=== PATIENT | female | born 1940 | race Caucasian/White ===

== ENCOUNTER 2016-12-23 12:11 | Day surgery (SDC) | payer MEDICARE, OTHER ==
[2016-12-23 12:37] VITALS: BP 179/86; PULSE 85; RESP 16; TEMP 97.9
--- NOTE | 2016-12-23 13:25 | US ---
Therapeutic paracentesis. CLINICAL HISTORY: Ascites Preliminary scanning demonstrated only small amount of ascites. No significant collection within the left abdomen. The patient deferred the procedure. IMPRESSION: Deferred ultrasound paracentesis
== END 2016-12-23 13:13 | disposition home or self-care (01) ==
LOC: RADPROMAIN 12:11
PROVIDERS: ATTEND Internal Medicine Hematology & Oncology
DX: R18.8 Other ascites (principal); Z53.29 Procedure and treatment not carried out because of patient's decision for other reasons; C56.9 Malignant neoplasm of unspecified ovary
CPT/HCPCS: 76705

== ENCOUNTER → 2017-08-10 | Outpatient (CLI) | payer MEDICARE, OTHER ==
[2017-08-10 15:04] LABS: Blood Urea Nitrogen 24 mg/dL (7-17); Non-African American GFR(MDRD) >60 (>60 ml/min/1.73 sqM)
--- NOTE | 2017-08-10 16:35 | CT ---
EXAMINATION TYPE: CT ChestAbdPelvis w con DATE OF EXAM: 08/10/2017 COMPARISON: NONE HISTORY: Follow-up ovarian cancer. Surgical history includes cholecystectomy, hysterectomy, splenecto my, and appendectomy. CT DLP: 587.10 mGycm. Automated Exposure Control for Dose Reduction was Utilized. CONTRAST: CT scan of the thorax, abdomen and pelvis is performed with IV Contrast, patient injected with 100 mL of Omnipaque 300. FINDINGS: LUNGS: Subpleural 2 to 3 mm pulmonary nodules are seen on the right and image 4 series 24 adjacent to an area of scarring or chronic atelectasis and on series 4 image 31 within the inferior right upper lobe. Probable intrafissural lymph node is also seen measuring 3 mm on series 4 image 32. No pulmonar y mass is identified. No left-sided pulmonary nodule seen. Linear left basilar pleural parenchymal sc arring is noted. The lungs are grossly clear, there is no concerning parenchymal mass or nodule ident ified. There is no pleural effusion or pneumothorax seen. The tracheobronchial tree is patent. MEDIASTINUM: There are no greater than 1 cm hilar or mediastinal lymph nodes. Prominent but nonenlarg ed prevascular 8mm lymph node is present. No pericardial effusion is seen. LIVER/GB: No hepatic masses are appreciated. No subserosal implants are seen or liver parenchymal inv asion in this patient with a history of ovarian cancer. Gallbladder surgically absent. Postsurgical p rominence of the extrahepatic biliary system is seen. No intrahepatic biliary ductal dilatation. PANCREAS: Diffuse pancreatic atrophy is seen without ductal dilatation. SPLEEN: The spleen is surgically absent. ADRENALS: No significant abnormality is seen. KIDNEYS: 6 mm right anterior cortical midpole renal lesion is too small to accurately characterize. B ilateral pelvocaliectasis is seen without matt evidence of hydronephrosis or hydroureter.. BOWEL: No significant abnormality is seen. No evidence of bowel dilation. The appendix is surgically absent. GENITAL ORGANS: Uterus is surgically absent. Ovaries are both thought to be surgically absent with no residual ovarian tissue visualized on CT. LYMPH NODES: No greater than 1cm abdominal or pelvic lymph nodes are appreciated. OSSEOUS STRUCTURES: Multilevel degenerative disc disease is seen of the thoracolumbar and lumbosacral spine, mild to moderate in degree. OTHER: Nonspecific presacral edema is seen measuring 1.4 cm in thickness on series 3 image 104. This could relate to prior therapy if radiation was utilized or edema. IMPRESSION: 1. No evidence of local pelvic adenopathy or adenopathy within the chest, abdomen or pelvis. 2. No evidence of visceral metastasis within the abdomen or pelvis. Few subcentimeter (2 to 3 mm) rig ht-sided pulmonary nodules. Although these are unlikely to relate to metastasis surveillance is recom mended with follow-up CT thorax in 3-6 months. 3. Nonspecific presacral edema that could relate to posttreatment change if radiation was utilized or could be postsurgical in nature.
== END ==
LOC: RADPROMAIN 13:46
PROVIDERS: ATTEND Internal Medicine Hematology & Oncology
DX: C56.2 Malignant neoplasm of left ovary (principal)
CPT/HCPCS: 82565; 84520; 71260; 74177; 36415; Q9967

== ENCOUNTER → 2017-12-29 | Outpatient (CLI) | payer MEDICARE, OTHER ==
[2017-12-29 13:28] LABS: Anion Gap 9 mmol/L; Blood Urea Nitrogen 23 mg/dL (7-17); Calcium 9.6 mg/dL (8.4-10.2); Carbon Dioxide 30 mmol/L (22-30); Chloride 104 mmol/L (98-107); Glucose 97 mg/dL (74-99); Potassium 4.6 mmol/L (3.5-5.1); Sodium 143 mmol/L (137-145)
== END | disposition home or self-care (01) ==
LOC: LABWHC1 12:15
PROVIDERS: ATTEND Family Medicine
DX: I10 Essential (primary) hypertension (principal)
CPT/HCPCS: 36415; 80048; 85610

== ENCOUNTER → 2018-02-14 | Outpatient (CLI) | payer MEDICARE, OTHER ==
[2018-02-14 14:00] LABS: Blood Urea Nitrogen 27 mg/dL (7-17)
--- NOTE | 2018-02-15 07:30 | CT ---
EXAMINATION TYPE: CT ChestAbdPelvis w con DATE OF EXAM: 02/14/2018 COMPARISON: CT Chest Abdomen Pelvis With August 10, 2017. HISTORY: Follow up ovarian cancer CT DLP: 893.7 mGycm. Automated Exposure Control for Dose Reduction was Utilized. CONTRAST: CT scan of the thorax, abdomen and pelvis is performed with oral and with IV Contrast, patient inject ed with 100 mL of Isovue 300. FINDINGS: LUNGS: Dependent atelectasis in both bases is present. There is no suspicious new greater than 5 mm p arenchymal nodule or mass bilaterally. Tiny linear and nodular scarring anteromedially right midlung is unchanged near axial image 24. Inferior and lateral to this there is stable 3 mm nodule axial imag e 31. There is no pleural effusion or pneumothorax seen bilaterally. MEDIASTINUM: There is stable 9 x 8 mm lymph node anterior to ascending aorta axial image 22. There is stable prominent but subcentimeter 1.8 x 0.8 cm pericarinal lymph node axial image 23. No new susp icious greater than 1 cm adenopathy identified. No cardiomegaly or pericardial effusion is seen. Cor onary artery calcification is redemonstrated which is noted marker for coronary artery disease. OTHER: There is persistent right internal jugular Mediport catheter terminating in SVC. LIVER/GB: Cholecystectomy clips are redemonstrated. PANCREAS: Fairly moderate fat replaced atrophy of pancreas particularly body is redemonstrated. SPLEEN: Spleen is surgically absent. ADRENALS: No significant abnormality is seen. KIDNEYS: There are simple central parapelvic cysts in the left kidney redemonstrated. There is persis tent subcentimeter low dense lesion anteriorly upper to mid pole level right kidney axial image 36 se piedad 5 to small to further characterize per presumed benign. BOWEL: The oral contrast reaches level of mid transverse colon. There is no suspicious small or large bowel dilatation. There are surgical sutures near sigmoid rectal junction on axial image 101 redemon strated. Amount of colonic fecal material is slightly more prominent versus prior study. GENITAL ORGANS: Uterus is surgically absent. Scattered pelvic phleboliths are seen. LYMPH NODES: No greater than 1cm abdominal or pelvic lymph nodes are appreciated. OSSEOUS STRUCTURES: Mild to moderate joint space loss in both hips remains present. There is multilev el facet arthropathy mid to lower lumbar levels. OTHER: No significant additional abnormality is seen. IMPRESSION: No obvious new mass or adenopathy is seen to suggest neoplastic recurrence or metastatic malignancy.
== END | disposition home or self-care (01) ==
LOC: RADPROMAIN 13:14
PROVIDERS: ATTEND Internal Medicine Hematology & Oncology
DX: C56.2 Malignant neoplasm of left ovary (principal); Z88.0 Allergy status to penicillin; Z88.2 Allergy status to sulfonamides
CPT/HCPCS: 82565; 84520; 71260; 74177; J1642; Q9967

== ENCOUNTER → 2018-04-23 | Outpatient (CLI) | payer MEDICARE, OTHER ==
--- NOTE | 2018-04-23 14:54 | MM ---
Reason for exam: screening (asymptomatic). Last mammogram was performed 1 year and 7 months ago. History: Patient is postmenopausal, has history of ovarian cancer at age 76, and has history of other cancer at age 70. Took estrogen for 7 years beginning at age 52. Took progesterone for 7 years beginning at age 52. Physical Findings: A clinical breast exam by your physician is recommended on an annual basis and results should be correlated with mammographic findings. MG 3D Screening Mammo W/Cad Bilateral CC and MLO view(s) were taken. Prior study comparison: September 19, 2016, bilateral MG 3d screening mammo w/cad. September 18, 2015, bilateral MG screening mammo w CAD. The breast tissue is heterogeneously dense. This may lower the sensitivity of mammography. There is chronic nodularity in the left subareolar breast. There is no dominant lesion. ASSESSMENT: Benign, BI-RAD 2 RECOMMENDATION: Routine screening mammogram of both breasts in 1 year.
== END | disposition home or self-care (01) ==
LOC: RADMAMWWP 11:26
PROVIDERS: ATTEND Family Medicine
DX: Z12.31 Encounter for screening mammogram for malignant neoplasm of breast (principal)
CPT/HCPCS: 77063; 77067

== ENCOUNTER → 2018-08-17 | Outpatient (CLI) | payer MEDICARE, OTHER ==
[2018-08-17 13:59] LABS: Blood Urea Nitrogen 24 mg/dL (7-17)
--- NOTE | 2018-08-17 16:08 | CT ---
EXAMINATION TYPE: CT ChestAbdPelvis w con DATE OF EXAM: 08/17/2018 COMPARISON: CT chest abdomen pelvis February 14, 2018 HISTORY: Ovarian cancer, suspect mets. CT DLP: 1619 mGycm. Automated Exposure Control for Dose Reduction was Utilized. CONTRAST: CT scan of the thorax, abdomen and pelvis is performed with oral and with IV Contrast, patient inject ed with 100 mL of Isovue M300. FINDINGS: LUNGS: There are some patchy bibasilar linear scarring and/or atelectasis redemonstrated. Tiny 2 mm n odule anterior right mid to lower lung axial image 32 is stable from 2017 CT. No new suspicious nodul es or masses are identified bilaterally. No pleural effusion or pneumothorax is seen. MEDIASTINUM: There are no new greater than 1 cm hilar or mediastinal lymph nodes. There is stable o r slightly less prominent 8 mm lymph node anterior to the ascending aorta axial image 23 redemonstrat ed. There is stable borderline enlarged pericarinal lymph node measuring 2.0 x 1.0 cm axial image 25. No cardiomegaly or pericardial effusion is seen. Coronary artery calcification is redemonstrated wh ich is noted marker for coronary artery disease. There is 4 vessel origin from aortic arch which is n ormal variant. OTHER: There is stable right internal jugular Mediport catheter terminating in SVC. LIVER/GB: Cholecystectomy clips are redemonstrated. PANCREAS: Mild diffuse fat replaced atrophy of pancreas is again seen. SPLEEN: Spleen is not visualized and presumed surgically absent. ADRENALS: No significant abnormality is seen. KIDNEYS: Subcentimeter low dense lesion right kidney axial image 33 series 7 is too small to further characterize but presumed benign and stable. BOWEL: Oral contrast reaches level proximal transverse colon. There is no suspicious small or large b owel dilatation. GENITAL ORGANS: Uterus is surgically absent. LYMPH NODES: No greater than 1cm abdominal or pelvic lymph nodes are appreciated. OSSEOUS STRUCTURES: Some multilevel spurring in the thoracolumbar spine is seen. Facet arthropathy lo wer lumbar levels is redemonstrated. Mild axial joint space loss in both hips is redemonstrated. OTHER: There is mild to moderate calcified plaque in the abdominal aorta extending into branch vessel s. There is periumbilical hernia containing fat and tiny mesenteric vessels near axial image 81 redem onstrated felt stable. IMPRESSION: Overall stable findings, no new mass or adenopathy identified to suggest metastatic malig megan or neoplastic recurrence.
== END | disposition home or self-care (01) ==
LOC: RADPROMAIN 13:20
PROVIDERS: ATTEND Internal Medicine Hematology & Oncology
DX: C56.2 Malignant neoplasm of left ovary (principal); Z88.0 Allergy status to penicillin; Z88.2 Allergy status to sulfonamides; Z95.828 Presence of other vascular implants and grafts
CPT/HCPCS: 82565; 84520; 71260; 74177; J1642; Q9967

== ENCOUNTER → 2019-04-24 | Outpatient (CLI) | payer MEDICARE, OTHER ==
--- NOTE | 2019-04-24 17:18 | CT ---
EXAMINATION TYPE: CT ChestAbdPelvis w con DATE OF EXAM: 04/24/2019 COMPARISON: 12/19/2018 and 08/17/2018 HISTORY: 78-year-old female f/u ovarian ca TECHNIQUE: Contiguous axial scanning of the test, abdomen, and pelvis performed with IV Contrast, pat ient injected with 100 mL of Isovue 300. Delayed images through the kidneys were obtained. Coronal/sa gittal reconstructions performed. CT DLP: 1827 mGycm Automated exposure control for dose reduction was used. FINDINGS: CHEST: Are normal size without pericardial effusion. Coronary vessel calcifications are present. Minimal aor tic valvular calcifications. There are normal caliber with very direct takeoff of the left vertebral artery from the aortic arch. Right anterior chest wall injection port with catheter tip at the cavoatrial junction. Anterior mediastinal lymph node measures 8 mm versus 9 mm, previously. Precarinal lymph node measures 1.1 cm versus 1.3 cm, previously. Additional pretracheal lymph nodes which were not enlarged previou sly also seem to have decreased in size now. 8mm subareolar nodule left breast was present back to at least 08/10/2017. Stable trace left pleural effusion. Trace right effusion has resolved. No new pulmonary nodules. No c onsolidation. ABDOMEN: No focal liver lesion. Stable mild prominence of bile duct status post cholecystectomy. Portal venous system is patent. Stable trace soft tissue thickening along the anterior aspect of the gallbladder fossa. A elizabeth hepat ic lymph node, axial image 58 measures 7 mm versus 9 mm, previously. Adrenal glands, left kidney, atrophic pancreas show no gross anomaly. Minimal stranding and nodularity is present in the splenectomy bed, unchanged from 08/17/2018.. Some focal peritoneal thickening right mid abdomen, axial image 76 measuring 1.2 cm and also anterior right paramedian mid abdomen measuring 2.1 x 0.7 cm, axial image 75, are both unchanged. There is new distortion of the mid transverse colon with questionable soft tissue thickening along th e inferior wall, refer to axial image 85 and coronal image 13. Attention on follow-up. No dilated small bowel or free air. Stable prominence to the right gonadal vein. Pelvis: Prior resection and re-anastomosis at the rectosigmoid junction. Mild diverticular change at the dist al sigmoid. Bladder partially distended. Uterus surgically absent. No abnormal fluid collection in th e pelvis. Bones: Degenerative changes at the hips. Degenerative changes mid to lower lumbar spine and endplate spondyl osis lower thoracic spine. No osseous disc process. IMPRESSION: 1. IN THE CHEST, A FEW MEDIASTINAL LYMPH NODES SHOW INTERVAL DECREASE IN SIZE BY A FEW MILLIMETERS, N OW MEASURING UP TO 1.1 CM VERSUS 1.3 CM, PREVIOUSLY. STABLE TRACE LEFT PLEURAL EFFUSION. 2. STABLE SOFT TISSUE THICKENING ALONG THE ANTERIOR ASPECT OF THE GALLBLADDER FOSSA AND SOME FOCAL. THICKENING AT A COUPLE PLACES WITHIN THE RIGHT SIDE OF THE ABDOMEN. LIKELY CORRESPONDING TO STABLE OR TREATED DISEASE. 3. A ELIZABETH HEPATIC LYMPH NODE IS SMALLER AT 7 MM VERSUS 9 MM, PREVIOUSLY. 4. HOWEVER, THERE IS NEW DISTORTION OF THE MID TRANSVERSE COLON WITH QUESTIONABLE SOFT TISSUE THICKEN ING ALONG THE INFERIOR WALL. CLOSE SURVEILLANCE IS RECOMMENDED TO EXCLUDE EARLY SEROSAL DISEASE HERE.
== END | disposition home or self-care (01) ==
LOC: RADCTMAIN 13:33
PROVIDERS: ATTEND Internal Medicine Hematology & Oncology
DX: Q43.8 Other specified congenital malformations of intestine (principal); C56.2 Malignant neoplasm of left ovary; Z03.89 Encounter for observation for other suspected diseases and conditions ruled out; Z88.2 Allergy status to sulfonamides; Z88.0 Allergy status to penicillin
CPT/HCPCS: 82565; 84520; 71260; 74177; 36415; J1642; Q9967

== ENCOUNTER → 2019-06-27 | Outpatient (CLI) | payer MEDICARE, OTHER | END | disposition home or self-care (01) | LOC: LABWHC1 13:48 | PROVIDERS: ATTEND Physical Medicine & Rehabilitation | DX: Z53.9 Procedure and treatment not carried out, unspecified reason (principal) ==

== ENCOUNTER → 2019-09-30 | Outpatient (CLI) | payer MEDICARE, OTHER ==
--- NOTE | 2019-09-30 16:00 | CT ---
EXAMINATION TYPE: CT abdomen pelvis w con DATE OF EXAM: 09/30/2019 COMPARISON: 04/24/2019 HISTORY: ovarian ca 6mo followup CT DLP: 1063 mGycm CONTRAST: CT scan of the abdomen and pelvis is performed with Oral Contrast and with IV Contrast, patient injec mer with 80 mL of [address] of the chest was included on this study. FINDINGS: CT chest: Left-sided pleural effusion measuring 2.9 cm AP dimension with associated compressive atelectasis. Sm all right-sided pleural effusion noted. No distinct ulnar nodule. Anterior mediastinal nodule is unch anged at 8 mm versus 8 mm previously. Heart and thoracic aorta are normal caliber. LIVER/GB: Cholecystectomy clips are in place. No space occupying hepatic lesion. Biliary tree is o f normal caliber. PANCREAS: No inflammation. No distinct mass. SPLEEN: No splenic enlargement. No lesion seen. ADRENALS: No nodule. No thickening. KIDNEYS/BLADDER: No hydronephrosis. No nephrolithiasis. No distinct renal mass. Urinary bladder g rossly unremarkable. BOWEL: Normal appendix. Normal bowel caliber. No inflammation. GENITAL ORGANS: Hysterectomy changes noted. The ovaries are surgically absent as well. No evidence f or recurrent or residual mass. LYMPH NODES: No greater than 1cm abdominal or pelvic lymph nodes are appreciated. AORTA: No significant abnormality. OSSEOUS STRUCTURES: No significant abnormality is seen. OTHER: Focal peritoneal thickening within the mid abdomen to the left of midline on image 82 measures 1.7 cm. Overall appearance is stable. There is peritoneal thickening remain unchanged. No new areas are appreciated. IMPRESSION: 1. No evidence for recurrent or residual disease within the pelvis. 2. Areas of peritoneal nodularity and thickening appear essentially unchanged relative to the prior s tudy without interval progression. 3. Bilateral pleural effusions tiny on the right which is an minimally increased on the left.
== END | disposition home or self-care (01) ==
LOC: RADPROMAIN 13:40
PROVIDERS: ATTEND Internal Medicine Hematology & Oncology
DX: C56.9 Malignant neoplasm of unspecified ovary (principal); Z88.0 Allergy status to penicillin; Z88.2 Allergy status to sulfonamides
CPT/HCPCS: 82565; 84520; 74177; 36415; J1642; Q9967

== ENCOUNTER 2019-11-25 14:51 | Inpatient (IN) | payer MEDICARE, OTHER ==
[2019-11-25 17:11] LABS: Anisocytosis Slight; Basophils # (A) 0.1 k/uL (0-0.2); Basophils % (A) 1 %; Eosinophils % (A) 0 %; HGB 13.5 gm/dL (11.4-16.0); Lymphocytes # (A) 1.3 k/uL (1.0-4.8); Lymphocytes % (A) 16 %; MCH 39.6 pg (25.0-35.0); MCHC 32.2 g/dL (31.0-37.0); MCV 123.1 fL (80.0-100.0); Macrocytosis Marked; Mean Platelet Volume 7.7; Monocytes # (A) 0.4 k/uL (0-1.0); Monocytes % (A) 5 %; Neutrophils # (A) 6.2 k/uL (1.3-7.7); Neutrophils % (A) 77 %; Platelet Count 351 k/uL (150-450); RBC 3.41 m/uL (3.80-5.40); RDW 16.1 % (11.5-15.5); WBC 8.2 k/uL (3.8-10.6)
[2019-11-25 17:20] LABS: ALT 15 U/L (4-34); AST 31 U/L (14-36); African American GFR (CKD) >90 (>60 ml/min/1.73 sqM); Alkaline Phosphatase 113 U/L (38-126); Amylase 34 U/L (30-110); Anion Gap 8 mmol/L; Blood Urea Nitrogen 19 mg/dL (7-17); Calcium 9.7 mg/dL (8.4-10.2); Carbon Dioxide 30 mmol/L (22-30); Chloride 99 mmol/L (98-107); Glucose 115 mg/dL (74-99); Non-African American GFR(CKD) 82 (>60 ml/min/1.73 sqM); Potassium 4.5 mmol/L (3.5-5.1); Sodium 137 mmol/L (137-145); Total Bilirubin 0.7 mg/dL (0.2-1.3); Total Protein 7.1 g/dL (6.3-8.2)
--- NOTE | 2019-11-25 17:45 | ED ---
General Adult HPI <Alex Murrell - Last Filed: 11/25/19 20:09> - General Source: patient, RN notes reviewed Mode of arrival: ambulatory Limitations: no limitations <Rubens Plascencia - Last Filed: 11/25/19 20:39> - General Chief complaint: Abdominal Pain Stated complaint: Abdominal pain/transferred from [facility] Time Seen by Provider: 11/25/19 16:27 - History of Present Illness Initial comments: 79-year-old female with a past medical history of ovarian cancer, bladder urgency pretensive the emergency determine for lower abdominal pain. States this started just yesterday. States it is in the right upper pubic areas of the lower abdomen. Patient states she does have ovarian cancer for which she takes oral chemo daily but she usually does not have any pain with this. She denies fevers. Denies dysuria. Denies alleviating or aggravating factors. States it comes and goes. States she was seen at [facility] earlier today and was sent to the emergency department for further evaluation of this abdominal pain. He has not had any nausea vomiting diarrhea.Patient has no other complaints at this time including shortness of breath, chest pain, nausea or vomiting, headache, or visual changes. (Rubens Plascencia) - Related Data Home Medications Medication Instructions Recorded Confirmed Gabapentin [Neurontin] 300 mg PO TID 11/25/19 11/25/19 Losartan Potassium 50 mg PO DAILY 11/25/19 11/25/19 Olaparib [Lynparza] 200 mg PO BID 11/25/19 11/25/19 Verapamil HCl [Verapamil ER] 120 mg PO DAILY 11/25/19 11/25/19 Allergies Allergy/AdvReac Type Severity Reaction Status Date / Time Penicillins Allergy Rash/Hives Verified 11/25/19 17:21 Sulfa (Sulfonamide AdvReac Nausea & Verified 11/25/19 17:21 Antibiotics) Vomiting Review of Systems ROS Other: All systems not noted in ROS Statement are negative. <Alex Murrell - Last Filed: 11/25/19 20:09> ROS Other: All systems not noted in ROS Statement are negative. <Rubens Plascencia - Last Filed: 11/25/19 20:39> ROS Statement: Those systems with pertinent positive or pertinent negative responses have been documented in the HPI. Past Medical History Past Medical History: Cancer, Hypertension Additional Past Medical History / Comment(s): bladder urgency, ovarian cancer, ovarian cyst removed 80's. History of Any Multi-Drug Resistant Organisms: None Reported Past Surgical History: Appendectomy, Tubal Ligation Additional Past Surgical History / Comment(s): ovarian cyst, melanoma removed from head Past Anesthesia/Blood Transfusion Reactions: No Reported Reaction Past Psychological History: No Psychological Hx Reported Smoking Status: Never smoker Past Alcohol Use History: None Reported Past Drug Use History: None Reported - Past Family History Sister(s) Family Medical History: Cancer Additional Family Medical History / Comment(s): originated in gall-bladder Brother(s) Family Medical History: Cancer Additional Family Medical History / Comment(s): Non-Hodgkins Lymphoma Mother Family Medical History: Cancer Additional Family Medical History / Comment(s): Colon CA Father Family Medical History: Cancer Additional Family Medical History / Comment(s): Bladder CA <Rubens Plascencia P - Last Filed: 11/25/19 20:39> General Exam Limitations: no limitations General appearance: alert, in no apparent distress Head exam: Present: atraumatic, normocephalic, normal inspection Eye exam: Present: normal appearance, PERRL, EOMI. Absent: scleral icterus, conjunctival injection, periorbital swelling ENT exam: Present: normal exam, mucous membranes moist Neck exam: Present: normal inspection, full ROM. Absent: tenderness, meningismus, lymphadenopathy Respiratory exam: Present: normal lung sounds bilaterally. Absent: respiratory distress, wheezes, rales, rhonchi, stridor Cardiovascular Exam: Present: regular rate, normal rhythm, normal heart sounds. Absent: systolic murmur, diastolic murmur, rubs, gallop, clicks GI/Abdominal exam: Present: soft, tenderness (Right and left lower abdominal tenderness), normal bowel sounds. Absent: distended, guarding, rebound, rigid Neurological exam: Present: alert <Rubens Plascencia P - Last Filed: 11/25/19 20:39> Course Vital Signs 11/25/19 11/25/19 11/25/19 15:18 18:11 19:00 Temperature 98.2 F Pulse Rate 93 76 84 Respiratory 20 18 Rate Blood Pressure 136/82 149/92 149/92 O2 Sat by Pulse 95 93 L 99 Oximetry Medical Decision Making - Lab Data Result diagrams: 11/25/19 16:13 11/25/19 16:13 <Alex Murrell - Last Filed: 11/25/19 20:09> - Lab Data Result diagrams: 11/25/19 16:13 11/25/19 16:13 <Rubens Plascencia - Last Filed: 11/25/19 20:39> - Medical Decision Making PA attestation: I, Dr. Alex Murrell, personally saw and examined the patient. I have reviewed and agree with the resident/PA findings, including all diagnostic interpretations and treatment plans as written unless otherwise stated. I was present for the pathak portions of any procedures performed and inclusive time noted for any critical care statement. Patient was seen and evaluated at bedside along with physician miller head assistant wet process Rubens Teague. Patient is 79-year-old female presents with chief complaint of abdominal pain nausea and vomiting. Return evaluation was obtained showing macrocytosis. Metabolic panel is unremarkable. Urinalysis is inconclusive. Computed tomography scan of the abdomen and pelvis shows pleural effusions that appear to be increased from last exam. Patient not having any respiratory complaints at this time. There is also findings of distended fluid in this distal small bowel right: Consistent with ileus. This appears to be new and patient evaluated at bedside with persistent nausea despite antiemetic therapy. The patient would be benefited from admission for fluids and medical monitoring. Discussed patient case Dr. merlos and was went except patient's care. (Alex Murrell) HPI physical exam is documented. CBC is unremarkable. CMP unremarkable as well. Urinalysis does not show any significant signs of infection. CT abdomen and pelvis was obtained which showed a distended fluid-filled small bowel and right colon without obstructing lesion consistent with ileus. There are also pleural effusions with basilar infiltrate and atelectasis increased compared to the last exam of 09/30/2019. She does not complaint of cough or shortness of breath. Patient did vomit twice in the emergency department. She did have some improvement in pain however given inability to tolerate oral intake with ileus patient will be admitted for further management. She'll be started on NPO diet and advanced inpatient as appropriately. (Rubens Plascencia) - Lab Data Lab Results 11/25/19 11/25/19 11/25/19 Range/Units 16:13 16:13 16:13 WBC 8.2 (3.8-10.6) k/uL RBC 3.41 L (3.80-5.40) m/uL Hgb 13.5 (11.4-16.0) gm/dL Hct 42.0 (34.0-46.0) % MCV 123.1 H (80.0-100.0) fL MCH 39.6 H (25.0-35.0) pg MCHC 32.2 (31.0-37.0) g/dL RDW 16.1 H (11.5-15.5) % Plt Count 351 (150-450) k/uL Neutrophils % 77 % Lymphocytes % 16 % Monocytes % 5 % Eosinophils % 0 % Basophils % 1 % Neutrophils # 6.2 (1.3-7.7) k/uL Lymphocytes # 1.3 (1.0-4.8) k/uL Monocytes # 0.4 (0-1.0) k/uL Eosinophils # 0.0 (0-0.7) k/uL Basophils # 0.1 (0-0.2) k/uL Anisocytosis Slight Macrocytosis Marked A Sodium 137 (137-145) mmol/L Potassium 4.5 (3.5-5.1) mmol/L Chloride 99 (98-107) mmol/L Carbon Dioxide 30 (22-30) mmol/L Anion Gap 8 mmol/L BUN 19 H (7-17) mg/dL Creatinine 0.72 (0.52-1.04) mg/dL Est GFR (CKD-EPI)AfAm >90 (>60 ml/min/1.73 sqM) Est GFR (CKD-EPI)NonAf 82 (>60 ml/min/1.73 sqM) Glucose 115 H (74-99) mg/dL Plasma Lactic Acid Prosper 1.3 (0.7-2.0) mmol/L Calcium 9.7 (8.4-10.2) mg/dL Total Bilirubin 0.7 (0.2-1.3) mg/dL AST 31 (14-36) U/L ALT 15 (4-34) U/L Alkaline Phosphatase 113 (38-126) U/L Total Protein 7.1 (6.3-8.2) g/dL Albumin 4.0 (3.5-5.0) g/dL Amylase 34 (30-110) U/L Lipase 43 (23-300) U/L Urine Color Urine Appearance (Clear) Urine pH (5.0-8.0) Ur Specific [place] (1.001-1.035) Urine Protein (Negative) Urine Glucose (UA) (Negative) Urine Ketones (Negative) Urine Blood (Negative) Urine Nitrite (Negative) Urine Bilirubin (Negative) Urine Urobilinogen (<2.0) mg/dL Ur Leukocyte Esterase (Negative) Urine RBC (0-5) /hpf Urine WBC (0-5) /hpf Ur Squamous Epith Cells (0-4) /hpf Urine Bacteria (None) /hpf Urine Mucus (None) /hpf 11/25/19 Range/Units 16:53 WBC (3.8-10.6) k/uL RBC (3.80-5.40) m/uL Hgb (11.4-16.0) gm/dL Hct (34.0-46.0) % MCV (80.0-100.0) fL MCH (25.0-35.0) pg MCHC (31.0-37.0) g/dL RDW (11.5-15.5) % Plt Count (150-450) k/uL Neutrophils % % Lymphocytes % % Monocytes % % Eosinophils % % Basophils % % Neutrophils # (1.3-7.7) k/uL Lymphocytes # (1.0-4.8) k/uL Monocytes # (0-1.0) k/uL Eosinophils # (0-0.7) k/uL Basophils # (0-0.2) k/uL Anisocytosis Macrocytosis Sodium (137-145) mmol/L Potassium (3.5-5.1) mmol/L Chloride (98-107) mmol/L Carbon Dioxide (22-30) mmol/L Anion Gap mmol/L BUN (7-17) mg/dL Creatinine (0.52-1.04) mg/dL Est GFR (CKD-EPI)AfAm (>60 ml/min/1.73 sqM) Est GFR (CKD-EPI)NonAf (>60 ml/min/1.73 sqM) Glucose (74-99) mg/dL Plasma Lactic Acid [place] (0.7-2.0) mmol/L Calcium (8.4-10.2) mg/dL Total Bilirubin (0.2-1.3) mg/dL AST (14-36) U/L ALT (4-34) U/L Alkaline Phosphatase (38-126) U/L Total Protein (6.3-8.2) g/dL Albumin (3.5-5.0) g/dL Amylase (30-110) U/L Lipase (23-300) U/L Urine Color Yellow Urine Appearance Cloudy H (Clear) Urine pH 7.5 (5.0-8.0) Ur Specific [place] 1.022 (1.001-1.035) Urine Protein 1+ H (Negative) Urine Glucose (UA) Negative (Negative) Urine Ketones Trace H (Negative) Urine Blood Trace H (Negative) Urine Nitrite Negative (Negative) Urine Bilirubin Negative (Negative) Urine Urobilinogen 2.0 (<2.0) mg/dL Ur Leukocyte Esterase Moderate H (Negative) Urine RBC 8 H (0-5) /hpf Urine WBC 8 H (0-5) /hpf Ur Squamous Epith Cells 9 H (0-4) /hpf Urine Bacteria Few H (None) /hpf Urine Mucus Moderate H (None) /hpf Disposition <Alex Murrell D - Last Filed: 11/25/19 20:09> Is patient prescribed a controlled substance at d/c from ED?: No Time of Disposition: 20:04 <Rubens Plascencia P - Last Filed: 11/25/19 20:39> Clinical Impression: Ileus, Vomiting Disposition: ADMITTED IP TO THIS HOSP Condition: Fair Referrals: Koby Ace MD [Primary Care Provider] - 1-2 days
[2019-11-25] MEDS ORDERED: SODIUM CHLORIDE 0.9% 500 ML 500 ML IV STA (17:47)
[2019-11-25] MEDS ORDERED: KETOROLAC 30 MG/ML 1 ML VIAL IVP SCH (18:00)
[2019-11-25] MEDS ORDERED: ONDANSETRON 4 MG/2 ML VIAL IVP STA (18:07)
[2019-11-25 18:32] LABS: Appearance,Urine Cloudy (Clear); Bacteria,Urine Few /hpf; Bilirubin,Urine Negative (Negative); Blood,Urine Trace (Negative); Color,Urine Yellow; Glucose,Urine (UA) Negative (Negative); Ketones,Urine Trace (Negative); Leukocyte Esterase,Urine Moderate (Negative); Mucus,Urine Moderate /hpf; Nitrite,Urine Negative (Negative); PH, Urine 7.5 (5.0-8.0); Protein,Urine 1+ (Negative); RBC,Urine 8 /hpf (0-5); Specific Gravity,Urine 1.022 (1.001-1.035); Squamous Epithelial Cell,Urine 9 /hpf (0-4); WBC,Urine 8 /hpf (0-5)
--- NOTE | 2019-11-25 19:27 | CT ---
EXAMINATION TYPE: CT abdomen pelvis w con DATE OF EXAM: 11/25/2019 COMPARISON: 09/30/2019 HISTORY: Abdominal pain CT DLP: 985.5 mGycm Automated exposure control for dose reduction was used. CONTRAST: Performed with IV Contrast, patient injected with 100 mL of Isovue 300. Multiple axial sections were obtained from the diaphragm to the floor the pelvis with intravenous con trast. There is moderate left pleural effusion. There is left lower lobe consolidation and atelectasis. Ther e is small right pleural effusion. There is mild atelectasis right lung base. Heart size is normal. T here is no pericardial effusion. Liver shows no focal defect. Stomach is intact. There are clips from cholecystectomy. Spleen is absen t. There is no adrenal mass. Kidneys show satisfactory contrast opacification. There is no hydronephrosi s. There is no retroperitoneal adenopathy. Abdominal aorta is atheromatous. Bladder is empty. There i s hysterectomy. There are surgical clips in the pelvis. There are some dilated fluid-filled loops of small bowel in the lower abdomen. Small bowel measures u p to 3.1 cm. There is distended fluid-filled right colon. I see no obstructing lesion. There is no free air. There is no ascites. There are some spondylotic changes in the lumbar spine. Th ere is no compression fracture. Bony pelvis appears intact. IMPRESSION: Pleural effusions with basilar infiltrate and atelectasis as above increased compared to last exam. Distended fluid-filled distal small bowel and right colon. No obstructing lesion seen. This is consis tent with ileus. This is a change compared to old exam.
[2019-11-25] MEDS ORDERED: NALOXONE 0.4 MG/ML 1 ML VIAL IV PRN (20:04)
[2019-11-25] MEDS: SODIUM CHLORIDE 0.9% 1,000 ML IV SCH (20:51)
[2019-11-26] MEDS: ONDANSETRON 4 MG/2 ML VIAL IVP PRN (07:41)
[2019-11-26] MEDS: KETOROLAC 30 MG/ML 1 ML VIAL IVP PRN (09:21)
--- NOTE | 2019-11-26 12:21 | P.GSHP ---
History of Present Illness H&P Date: 11/26/19 Chief Complaint: Nausea, abdominal distention This a 79-year-old female who is minimal hospital through the emergency room last night. Patient complaints of nausea abdominal pain and distention. She states she feels better today. She's had some minimal flatus. Her CAT scan is suggestive of an ileus. Patient has a history of ovarian cancer. Past Medical History Past Medical History: Cancer, Hypertension Additional Past Medical History / Comment(s): bladder urgency, ovarian cancer, skin cancer, nueropathy, ovarian cyst removed 80's, DVT History of Any Multi-Drug Resistant Organisms: None Reported Past Surgical History: Appendectomy, Hysterectomy, Tubal Ligation Additional Past Surgical History / Comment(s): ovarian cyst, melanoma removed from head, spleen removed, total hysterectomy, bowel resection, colonoscopy, Past Anesthesia/Blood Transfusion Reactions: No Reported Reaction Additional Past Anesthesia/Blood Transfusion Reaction / Comment(s): Patient unsure if she has ever had blood. Past Psychological History: No Psychological Hx Reported Smoking Status: Never smoker Past Alcohol Use History: None Reported Past Drug Use History: None Reported - Past Family History Sister(s) Family Medical History: Cancer Additional Family Medical History / Comment(s): originated in gall-bladder Brother(s) Family Medical History: Cancer Additional Family Medical History / Comment(s): Non-Hodgkins Lymphoma Mother Family Medical History: Cancer Additional Family Medical History / Comment(s): Colon CA Father Family Medical History: Cancer Additional Family Medical History / Comment(s): Bladder CA Medications and Allergies Home Medications Medication Instructions Recorded Confirmed Type Gabapentin [Neurontin] 300 mg PO TID 11/25/19 11/25/19 History Losartan Potassium 50 mg PO DAILY 11/25/19 11/25/19 History Olaparib [Lynparza] 200 mg PO BID 11/25/19 11/25/19 History Verapamil HCl [Verapamil ER] 120 mg PO DAILY 11/25/19 11/25/19 History Allergies Allergy/AdvReac Type Severity Reaction Status Date / Time Penicillins Allergy Rash/Hives Verified 11/25/19 17:21 Sulfa (Sulfonamide AdvReac Nausea & Verified 11/25/19 17:21 Antibiotics) Vomiting Surgical - Exam Vital Signs Temp Pulse Resp BP Pulse Ox 98.2 F 93 20 136/82 95 11/25/19 15:18 11/25/19 15:18 11/25/19 15:18 11/25/19 15:18 11/25/19 15:18 - General well developed, no distress - Eyes PERRL - ENT normal pinna - Neck no masses - Respiratory normal expansion - Cardiovascular Rhythm: regular - Abdomen Mildly distended Abdomen: soft Results - Labs 11/25/19 16:13 11/25/19 16:13 Abnormal Lab Results - Last 24 Hours (Table) 11/25/19 11/25/19 11/25/19 Range/Units 16:13 16:13 16:53 RBC 3.41 L (3.80-5.40) m/uL MCV 123.1 H (80.0-100.0) fL MCH 39.6 H (25.0-35.0) pg RDW 16.1 H (11.5-15.5) % Macrocytosis Marked A BUN 19 H (7-17) mg/dL Glucose 115 H (74-99) mg/dL Urine Appearance Cloudy H (Clear) Urine Protein 1+ H (Negative) Urine Ketones Trace H (Negative) Urine Blood Trace H (Negative) Ur Leukocyte Esterase Moderate H (Negative) Urine RBC 8 H (0-5) /hpf Urine WBC 8 H (0-5) /hpf Ur Squamous Epith Cells 9 H (0-4) /hpf Urine Bacteria Few H (None) /hpf Urine Mucus Moderate H (None) /hpf Diabetes panel 11/25/19 Range/Units 16:13 Sodium 137 (137-145) mmol/L Potassium 4.5 (3.5-5.1) mmol/L Chloride 99 (98-107) mmol/L Carbon Dioxide 30 (22-30) mmol/L BUN 19 H (7-17) mg/dL Creatinine 0.72 (0.52-1.04) mg/dL Glucose 115 H (74-99) mg/dL Calcium 9.7 (8.4-10.2) mg/dL AST 31 (14-36) U/L ALT 15 (4-34) U/L Alkaline Phosphatase 113 (38-126) U/L Total Protein 7.1 (6.3-8.2) g/dL Albumin 4.0 (3.5-5.0) g/dL Calcium panel 11/25/19 Range/Units 16:13 Calcium 9.7 (8.4-10.2) mg/dL Albumin 4.0 (3.5-5.0) g/dL Pituitary panel 11/25/19 Range/Units 16:13 Sodium 137 (137-145) mmol/L Potassium 4.5 (3.5-5.1) mmol/L Chloride 99 (98-107) mmol/L Carbon Dioxide 30 (22-30) mmol/L BUN 19 H (7-17) mg/dL Creatinine 0.72 (0.52-1.04) mg/dL Glucose 115 H (74-99) mg/dL Calcium 9.7 (8.4-10.2) mg/dL Adrenal panel 11/25/19 Range/Units 16:13 Sodium 137 (137-145) mmol/L Potassium 4.5 (3.5-5.1) mmol/L Chloride 99 (98-107) mmol/L Carbon Dioxide 30 (22-30) mmol/L BUN 19 H (7-17) mg/dL Creatinine 0.72 (0.52-1.04) mg/dL Glucose 115 H (74-99) mg/dL Calcium 9.7 (8.4-10.2) mg/dL Total Bilirubin 0.7 (0.2-1.3) mg/dL AST 31 (14-36) U/L ALT 15 (4-34) U/L Alkaline Phosphatase 113 (38-126) U/L Total Protein 7.1 (6.3-8.2) g/dL Albumin 4.0 (3.5-5.0) g/dL Assessment and Plan Assessment: Ileus versus early partial small bowel structure. Patient currently is a symptomatically. She denies any nausea or vomiting. Patient will be observed. If she shows any sign of obstruction she'll have a repeat CAT scan performed w ith oral contrast.
--- NOTE | 2019-11-26 15:06 | P.CONS ---
History of Present Illness - Reason for Consult Consult date: 11/26/19 Medical management Requesting physician: Lupillo Burris - Chief Complaint Abdominal pain - History of Present Illness Consultation: This is a pleasant 79-year-old patient of Dr. Koby Ace. History of ovarian carcinoma. Had surgery 3 years ago at [facility]. Also had 2 rounds of chemotherapy. Loss from being about a year ago. Currently being followed by Dr. Segal. Did have a computed tomography scan remarkable was told everything is fine. Patient presents with 4 days of increasing lower abdominal pain. Had nausea vomiting yesterday. No fever no chills. Normally has a bowel movement every day. But had not had a bowel movement for 4 days. She did have a moderate amount of bowel movement today though. Appetite has not been good. Computed tomography scan of the ER was suggestive of ileus bowel obstruction could not be ruled out. Being managed conservatively right now. at the bedside. Review of systems: GEN.: Tired EYES: None HEENT: None NECK: None RESPIRATORY: None CARDIOVASCULAR: None GASTROINTESTINAL: As above GENITOURINARY: None MUSCULOSKELETAL: None LYMPHATICS: None HEMATOLOGICAL: None PSYCHIATRY: None NEUROLOGICAL: None Past medical history to include: Ovarian cancer, hypertension, bladder urgency, skin cancer, peripheral neuropathy, DVT Social history: , does not smoke or drink alcohol. Physical examination: VITAL SIGNS: 98, 72, 17, 118-70, 97% on 2 L GENERAL: BMI 26.5, sitting up in a chair, comfortable. EYES: Pupils equal. Conjunctiva normal. HEENT: External appearance of nose and ears normal, oral cavity grossly normal. NECK: JVD not raised; masses not palpable. HEART: First and second heart sounds are normal; no edema. LUNGS: Respiratory rate normal; clear to auscultation. ABDOMEN: Soft, slightly distended, lower abdominal tenderness, no guarding or rigidity, bowel sounds are present nontender, liver spleen not palpable, no masses palpable. PSYCH: Alert and oriented x3; mood and affect normal. NEUROLOGICAL: Cranial nerves grossly intact; no facial asymmetry, power and se nsation grossly intact. LYMPHATICS: No lymph nodes palpable in the axilla and neck INVESTIGATIONS, reviewed in the clinical context: White count 8.2 hemoglobin 13.5 platelets 3514.5 bun 19 creatine 0.7 to Computed tomography scan of the abdomen and pelvis with contrast-moderate left pleural effusion, left lower lobe consolidation and atelectasis dilated fluid filled loops of small bowel, distended fluid-filled right: Assessment: -This is a patient with prior intra-abdominal surgery with ovarian cancer now presented with 4 days of abdominal pain and distention and no bowel movement for 4 days. Did have a small wart a bowel movement today. Had nausea vomiting at home. Ileus versus small bowel obstruction. Currently no nausea vomiting. Being managed conservatively with observation. -Ovarian cancer with surgery 3 years ago and chemotherapy. Being followed by Dr. Segal. Concern is for return of intra-abdominal malignancy. 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 Getting IV fluids. Lovenox for DVT prophylaxis. We will check a CA-125 level and also opinion from the oncology team. Thank you Dr. Burris Past Medical History Past Medical History: Cancer, Hypertension Additional Past Medical History / Comment(s): bladder urgency, ovarian cancer, skin cancer, nueropathy, ovarian cyst removed 80's, DVT History of Any Multi-Drug Resistant Organisms: None Reported Past Surgical History: Appendectomy, Hysterectomy, Tubal Ligation Additional Past Surgical History / Comment(s): ovarian cyst, melanoma removed from head, spleen removed, total hysterectomy, bowel resection, colonoscopy, Past Anesthesia/Blood Transfusion Reactions: No Reported Reaction Additional Past Anesthesia/Blood Transfusion Reaction / Comm: Patient unsure if she has ever had blood. Past Psychological History: No Psychological Hx Reported Smoking Status: Never smoker Past Alcohol Use History: None Reported Past Drug Use History: None Reported - Past Family History Sister(s) Family Medical History: Cancer Additional Family Medical History / Comment(s): originated in gall-bladder Brother(s) Family Medical History: Cancer Additional Family Medical History / Comment(s): Non-Hodgkins Lymphoma Mother Family Medical History: Cancer Additional Family Medical History / Comment(s): Colon CA Father Family Medical History: Cancer Additional Family Medical History / Comment(s): Bladder CA Medications and Allergies Home Medications Medication Instructions Recorded Confirmed Type Gabapentin [Neurontin] 300 mg PO TID 11/25/19 11/25/19 History Losartan Potassium 50 mg PO DAILY 11/25/19 11/25/19 History Olaparib [Lynparza] 200 mg PO BID 11/25/19 11/25/19 History Verapamil HCl [Verapamil ER] 120 mg PO DAILY 11/25/19 11/25/19 History Allergies Allergy/AdvReac Type Severity Reaction Status Date / Time Penicillins Allergy Rash/Hives Verified 11/25/19 17:21 Sulfa (Sulfonamide AdvReac Nausea & Verified 11/25/19 17:21 Antibiotics) Vomiting Physical Exam Vitals: Vital Signs Temp Pulse Pulse Resp BP BP Pulse Ox 11/26/19 11:45 98 F 72 17 118/70 97 11/26/19 05:14 98.3 F 66 18 160/83 98 11/25/19 21:34 98.3 F 79 18 140/69 97 11/25/19 19:00 84 149/92 99 11/25/19 18:11 76 18 149/92 93 L 11/25/19 15:18 98.2 F 93 20 136/82 95 Intake and Output 11/25/19 11/26/19 11/26/19 22:59 06:59 14:59 Intake Total 700 400 Balance 700 400 Intake: Intake, IV Titration 700 400 Amount Sodium Chloride 0.9% 1, 200 400 000 ml @ 50 mls/hr IV . Q20H SHANNON Rx#:[id number] Sodium Chloride 0.9% 500 500 ml 500 ml @ 999 mls/hr IV .Q31M STA Rx#:[id number] Other: Voiding Method Bedside Commode Bedside Commode Diaper Diaper Weight 79 kg 76.657 kg Results CBC & Chem 7: 11/25/19 16:13 11/25/19 16:13 Labs: Abnormal Lab Results - Last 24 Hours (Table) 11/25/19 11/25/19 11/25/19 Range/Units 16:13 16:13 16:53 RBC 3.41 L (3.80-5.40) m/uL MCV 123.1 H (80.0-100.0) fL MCH 39.6 H (25.0-35.0) pg RDW 16.1 H (11.5-15.5) % Macrocytosis Marked A BUN 19 H (7-17) mg/dL Glucose 115 H (74-99) mg/dL Urine Appearance Cloudy H (Clear) Urine Protein 1+ H (Negative) Urine Ketones Trace H (Negative) Urine Blood Trace H (Negative) Ur Leukocyte Esterase Moderate H (Negative) Urine RBC 8 H (0-5) /hpf Urine WBC 8 H (0-5) /hpf Ur Squamous Epith Cells 9 H (0-4) /hpf Urine Bacteria Few H (None) /hpf Urine Mucus Moderate H (None) /hpf
[2019-11-26] MEDS: LOSARTAN 50 MG TAB PO SCH (15:13)
[2019-11-26] MEDS: GABAPENTIN 300 MG CAP PO SCH ×2 (15:13→21:17)
[2019-11-26] MEDS: VERAPAMIL SR 120 MG TABLET.ER PO SCH (15:14)
[2019-11-26] MEDS: SODIUM CHLORIDE 0.9% 1,000 ML IV SCH ×2 (18:09→23:45)
[2019-11-27] MEDS: LOSARTAN 50 MG TAB PO SCH (08:52)
[2019-11-27] MEDS: KETOROLAC 30 MG/ML 1 ML VIAL IVP PRN (08:52)
[2019-11-27] MEDS: VERAPAMIL SR 120 MG TABLET.ER PO SCH (08:52)
[2019-11-27] MEDS: GABAPENTIN 300 MG CAP PO SCH ×3 (08:52→21:23)
--- NOTE | 2019-11-27 10:11 | P.PN ---
Subjective Progress Note Date: 11/27/19 CHIEF COMPLAINT: nausea HISTORY OF PRESENT ILLNESS: Patient examined at the bedside with Dr. Burris. She denies nausea or vomiting. She reports a large liquid bowel movement this morning. She denies abdominal pain. She does report increased abdominal bloating and distention. PHYSICAL EXAM: VITAL SIGNS: Reviewed. GENERAL: Well-developed in no acute distress. HEENT: No sclera icterus. Extraocular movements grossly intact. Moist buccal mucosa. Head is atraumatic, normocephalic. ABDOMEN: Soft. Distended. Nontender. NEUROLOGIC: Alert and oriented. Cranial nerves II through XII grossly intact. ASSESSMENT: 1. Ileus 2. History of ovarian cancer PLAN: Obtain CT abdomen pelvis with oral contrast Possible clear liquid diet pending CT results Nurse practitioner note has been reviewed by physician. Signing provider agrees with the documented findings, assessment, and plan of care. Objective - Vital Signs Vital signs: Vital Signs Temp 98.2 F 11/27/19 04:39 Pulse 74 11/27/19 04:39 Resp 16 11/27/19 04:39 BP 134/68 11/27/19 04:39 Pulse Ox 95 11/27/19 04:39 Intake & Output 11/26/19 11/27/19 11/27/19 18:59 06:59 18:59 Intake Total 1500 Balance 1500 Weight 76.657 kg Intake: Intake, IV Titration 1500 Amount Sodium Chloride 0.9% 1, 1500 000 ml @ 125 mls/hr IV . Q8H [facility] Rx#:[id number] Other: Voiding Method Bedside Commode Bedside Commode Bedside Commode Diaper Diaper Diaper # Voids 1 1 # Bowel Movements 1 - Labs CBC & Chem 7: 11/25/19 16:13 11/25/19 16:13
[2019-11-27] MEDS: IOPAMIDOL CONTRAST (ORAL USE) VIAL PO PRN ×2 (10:27→11:33)
--- NOTE | 2019-11-27 10:29 | P.CONS ---
History of Present Illness - Reason for Consult Consult date: 11/27/19 ovarian cancer Requesting physician: Arnaldo Walls - Chief Complaint abd pain, ileus vs obstruction - History of Present Illness Mrs. Irvin is a very pleasant female patient of Dr. Mendoza who has a long-standing history of treated ovarian cancer. Patient was diagnosed in early 2016. She presented with abdominal distention and fullness. Ultrasound of the abdomen showed ascites, CT AP dated 11/22/16 revealed extensive mesenteric thickening, omental caking and ascites. 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 She had exploratory laparotomy, SCOT plus BSO, rectosigmoid resection with end-to-end anastomosis, splenectomy, omentectomy and cystostomy repair on 01/19/17. Pleural fluid cytology was unfortunately positive. 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 Patient was placed back on the paimiut plus Avastin regimen. Patient did well but decided that she did not want to do intravenous chemotherapy anymore. Patient was started on lynparza as a maintenance therapy as her disease was responding to a paimiut agent. Patient did well until late October. She was in for 2 acute visits within 2 weeks in the early part of November. Patient felt that the oral medication causing her to feel weak and have shortness of breath. The medication was held and patient started to feel better, up until 3 days ago.She started having right lower quadrant cramping, v sonali loud bowel sounds, she had not had a bowel movement for at least 3 days, appetite diminished, abd felt bloated. She denied fevers, chills, nausea, vomiting, her SOB has been better off of lynparza. She was directed to the emergency department for evaluation of her right lower quadrant pain, concern was for ileus or obstruction. Also, wanted to be able to provide patient with some pain relief as she is not prescribed any pain medications. She feels a little better today. Review of Systems 14 point ROS is negative except as stated in HPI Past Medical History Past Medical History: Cancer, Hypertension Additional Past Medical History / Comment(s): bladder urgency, ovarian cancer, skin cancer, nueropathy, ovarian cyst removed 80's, DVT History of Any Multi-Drug Resistant Organisms: None Reported Past Surgical History: Appendectomy, Hysterectomy, Tubal Ligation Additional Past Surgical History / Comment(s): ovarian cyst, melanoma removed from head, spleen removed, total hysterectomy, bowel resection, colonoscopy, Past Anesthesia/Blood Transfusion Reactions: No Reported Reaction Additional Past Anesthesia/Blood Transfusion Reaction / Comm: Patient unsure if she has ever had blood. Past Psychological History: No Psychological Hx Reported Smoking Status: Never smoker Past Alcohol Use History: None Reported Past Drug Use History: None Reported - Past Family History Sister(s) Family Medical History: Cancer Additional Family Medical History / Comment(s): originated in gall-bladder Brother(s) Family Medical History: Cancer Additional Family Medical History / Comment(s): Non-Hodgkins Lymphoma Mother Family Medical History: Cancer Additional Family Medical History / Comment(s): Colon CA Father Family Medical History: Cancer Additional Family Medical History / Comment(s): Bladder CA Medications and Allergies Home Medications Medication Instructions Recorded Confirmed Type Gabapentin [Neurontin] 300 mg PO TID 11/25/19 11/25/19 History Losartan Potassium 50 mg PO DAILY 11/25/19 11/25/19 History Olaparib [Lynparza] 200 mg PO BID 11/25/19 11/25/19 History Verapamil HCl [Verapamil ER] 120 mg PO DAILY 11/25/19 11/25/19 History Allergies Allergy/AdvReac Type Severity Reaction Status Date / Time Penicillins Allergy Rash/Hives Verified 11/25/19 17:21 Sulfa (Sulfonamide AdvReac Nausea & Verified 11/25/19 17:21 Antibiotics) Vomiting Physical Exam Vitals: Vital Signs Temp Pulse Resp BP Pulse Ox 11/27/19 04:39 98.2 F 74 16 134/68 95 11/26/19 19:47 97.9 F 69 16 116/72 97 11/26/19 16:11 90 L 11/26/19 16:10 97.9 F 71 20 131/81 96 11/26/19 11:45 98 F 72 17 118/70 97 Intake and Output 11/26/19 11/27/19 11/27/19 22:59 06:59 14:59 Intake Total 500 1000 Balance 500 1000 Intake: Intake, IV Titration 500 1000 Amount Sodium Chloride 0.9% 1, 500 1000 000 ml @ 125 mls/hr IV . Q8H [facility] Rx#:[id number] Other: Voiding Method Bedside Commode Bedside Commode Bedside Commode Diaper Diaper Diaper # Voids 1 1 - Constitutional General appearance: cooperative, no acute distress, obese - EENT Eyes: anicteric sclerae, EOMI ENT: hearing grossly normal, normal oropharynx - Neck Neck: no lymphadenopathy - Respiratory Respiratory: bilateral: CTA - Cardiovascular Rhythm: regular Heart sounds: normal: S1, S2 Abnormal Heart Sounds: no systolic murmur, no diastolic murmur, no rub, no S3 Gallop, no S4 Gallop, no click, no other leg Peripheral Edema: bilateral: None (bilateral braces) - Gastrointestinal General gastrointestinal: no absent bowel sounds, no decreased bowel sounds, dis tended, no hepatomegaly, hyperactive bowel sounds, no normal bowel sounds, no organomegaly, no rigid, no scaphoid, soft, no splenomegaly, tenderness, no umbilical hernia, no ventral hernia - Integumentary Integumentary: pale - Neurologic Neurologic: CNII-XII intact - Musculoskeletal Musculoskeletal: generalized weakness - Psychiatric Psychiatric: A&O x's 3, appropriate affect, intact judgment & insight Results CBC & Chem 7: 11/25/19 16:13 11/25/19 16:13 CT scan - abdomen: report reviewed CT scan - pelvis: report reviewed Assessment and Plan (1) Abdominal pain Narrative/Plan: CT of the abdomen and pelvis report reviewed. Concern is for ileus, not clear if there is obstruction. New CT scan has been ordered today for evaluation. Surgery is following. Dr. Doe discussed with the patient the possibilities for this ileus or obstruction. It could be related to scar tissue in the abdomen from extensive surgical procedures that the patient has had in the past. Could be scar tissue of treated disease, could be related to progressive disease. We will await the f/u scan. CA 125 has been ordered. Current Visit: Yes Status: Acute Priority: High Code(s): R10.9 - UNSPECI FIED ABDOMINAL PAIN SNOMED Code(s): 28103472 (2) Primary ovarian adenocarcinoma Current Visit: Yes Status: Chronic Priority: High Code(s): C56.9 - MA LIGNANT NEOPLASM OF UNSPECIFIED OVARY SNOMED Code(s): 95587211 Plan: Doctor attests: I performed a history and physical examination of this patient, developed impression and plan of care, discussed with dictator. I agree with dictators note, documented as a scribe.
--- NOTE | 2019-11-27 13:23 | CT ---
EXAMINATION TYPE: CT abdomen pelvis wo con DATE OF EXAM: 11/27/2019 HISTORY: Abdominal distention. CT DLP: 584.4 mGycm. Automated Exposure Control for Dose Reduction was Utilized. TECHNIQUE: CT scan of the abdomen and pelvis is performed with oral but without IV contrast. COMPARISON CT abdomen and pelvis 2 days ago and older CTs FINDINGS: Within the limitations of a non-contrast study, the following observations are made. LUNG BASES: Persistent small to moderate-sized left pleural effusion and associated left basilar comp ressive atelectasis. Tiny right pleural effusion is slightly increased in size from prior. Coronary a rtery calcification redemonstrated which is noted marker for underlying coronary artery disease. LIVER/GB: Cholecystectomy clips are redemonstrated. PANCREAS: Mild to moderate generalized fat replaced atrophy redemonstrated. SPLEEN: Surgical sutures left upper quadrant presumed from splenectomy axial image 19 redemonstrated. ADRENALS: No significant abnormality is seen. KIDNEYS: Some persistent secretions from recent IV enhanced CT study as both kidney collecting system s show central hyperdensity remaining present. Bladder poorly distended and suboptimally evaluated. BOWEL: Current study contrast-filled stomach is present without suspicious dilatation. Slight promine nce of the duodenal sweep near second third portion junction otherwise duodenal sweep shows no suspic ious dilatation. The Oral contrast reaches the level of the proximal transverse colon. Some small bow el loops are slightly prominent without greater than 3 cm dilatation. Few scattered air-fluid levels are identified more prominent in the pelvis. There is contrast distention of the cecum and right colon similar to prior. There is less dense contr ast-filled rectal surgical sutures distal sigmoid colon near axial image 73 redemonstrated. Few diver ticula in the left lower quadrant near junction of left and sigmoid colon. Occasional diverticula in the left colon. Left contrast filled left colon up to splenic flexure is seen without suspicious dila tation. There is poor visualization of the central transverse colon. There is severe wall thickening proximal to midsegment coronal image 16 with an poor visualization of mid to distal segment is diffic ult to differentiate or delineate from adjacent small bowel loops. GENITAL ORGANS: Uterus surgically absent or markedly atrophic similar to prior. LYMPH NODES: No greater than 1cm abdominal or pelvic lymph nodes are appreciated. OSSEOUS STRUCTURES: Underlying levoconvex scoliosis centered lower lumbar spine redemonstrated. OTHER: No significant additional abnormality is seen. IMPRESSION: 1. Suspect persistent partial obstruction at level of the mid transverse colon likely from adhesions as the remains poorly bowel loops at this level and persistent dilatation of the right colo n with air-fluid levels and prominence of the distal small bowel loops in the pelvis. There is not co mplete obstruction as some contrast is reaching the level of the rectum. Findings centered left mid a bdomen coronal image 17 similar to prior study image 22.
--- NOTE | 2019-11-27 17:03 | P.PN ---
Progress Note - Text Progress Note Date: 11/27/19 - Chief Complaint Abdominal pain History of presenting complaint: This is a pleasant 79-year-old patient of Dr. Koby Ace. History of ovarian serous adenocarcinoma. Had surgery 3 years ago at [facility] [place]. Also had 2 rounds of chemotherapy. Loss from being about a year ago. Currently being followed by Dr. Segal. Did have a computed tomography scan remarkable was told everything is fine. Patient presents with 4 days of increasing lower abdominal pain. Had nausea vomiting yesterday. No fever no chills. Normally has a bowel movement every day. But had not had a bowel movement for 4 days. She did have a moderate amount of bowel movement today though. Appetite has not been good. Computed tomography scan of the ER was suggestive of ileus bowel obstruction could not be ruled out. Being managed conservatively right now. Today-laying in bed. Some abdominal discomfort still present. More so in the lower abdomen. Had some loose stools. Repeat computed tomography scan done today. No nausea vomiting. Patient nothing by mouth. Review of systems: Was done for constitutional, cardiovascular, GI, pulmonary. relevant finding as above Active Medications Gabapentin (Neurontin) 300 mg PO TID [facility] Last Admin: 11/27/19 15:41 Dose: Not Given Documented by: Sodium Chloride (Saline 0.9%) 1,000 mls @ 125 mls/hr IV .Q8H [facility] Last Admin: 11/26/19 23:45 Dose: 125 mls/hr Documented by: Ketorolac Tromethamine (Toradol) 15 mg IVP Q6HR PRN PRN Reason: Moderate Pain Stop: 11/30/19 20:05 Last Admin: 11/27/19 08:52 Dose: 15 mg Documented by: Losartan Potassium (Cozaar) 50 mg PO DAILY [facility] Last Admin: 11/27/19 08:52 Dose: 50 mg Documented by: Morphine Sulfate (Morphine Sulfate (Inj)) 2 mg IV Q4HR PRN PRN Reason: Severe Pain Naloxone HCl (Narcan) 0.2 mg IV Q2M PRN PRN Reason: Opioid Reversal Ondansetron HCl (Zofran) 4 mg IVP Q8HR PRN PRN Reason: Nausea And Vomiting Last Admin: 11/26/19 07:41 Dose: 4 mg Documented by: Verapamil HCl (Isoptin Sr) 120 mg PO DAILY [facility] Last Admin: 11/27/19 08:52 Dose: 120 mg Documented by: Physical examination: VITAL SIGNS: 97.6, 76, 17, 130/66, 97% on 2 L GENERAL: Laying in bed, uncomfortable EYES: Pupils equal. Conjunctiva normal. HEENT: External appearance of nose and ears normal, oral cavity grossly normal. NECK: JVD not raised; masses not palpable. HEART: First and second heart sounds are normal; no edema. LUNGS: Respiratory rate normal; clear to auscultation. ABDOMEN: Soft, slightly distended, lower abdominal tenderness, no guarding or rigidity, bowel sounds are present, liver spleen not palpable, no masses palpable. PSYCH: Alert and oriented x3; mood and affect normal. INVESTIGATIONS, reviewed in the clinical context: Computed tomography scan of the abdomen-possible transverse colon, partial obstruction Previous testing White count 8.2 hemoglobin 13.5 platelets 3514.5 bun 19 creatine 0.7 to Computed tomography scan of the abdomen and pelvis with contrast-moderate left pleural effusion, left lower lobe consolidation and atelectasis dilated fluid filled loops of small bowel, distended fluid-filled right: Assessment: -This is a patient with prior intra-abdominal surgery with ovarian cancer now presented with 4 days of abdominal pain and distention and no bowel movement for 4 days. Repeat computed tomography scan is showing a partial obstruction of the transverse colon. Patient remains nothing by mouth. 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 Being followed by Dr. Segal. Concern is for return of intra-abdominal malignancy. 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 IV fluids. Patient may need surgical intervention. Follow with surgery. Discussed with the patient. Thank you Dr. Burris
[2019-11-27] MEDS: SODIUM CHLORIDE 0.9% 1,000 ML IV SCH ×2 (18:13→18:59)
[2019-11-28] MEDS: SODIUM CHLORIDE 0.9% 1,000 ML IV SCH ×3 (01:02→18:00)
[2019-11-28] MEDS: LOSARTAN 50 MG TAB PO SCH (08:15)
[2019-11-28] MEDS: GABAPENTIN 300 MG CAP PO SCH ×3 (08:15→22:08)
[2019-11-28] MEDS: VERAPAMIL SR 120 MG TABLET.ER PO SCH (08:15)
--- NOTE | 2019-11-28 15:18 | P.PN ---
Subjective Progress Note Date: 11/28/19 Principal diagnosis: Abdominal pain Patient is thirsty. She is requesting a liquid diet. Still having intermittent liquid stools. Diminished flatus. Denies nausea or vomiting. Appetite seems improved. CAT scan reviewed. CAT scan shows possible thickening mid transverse colon. Cecum and ascending colon are distended. Partial colonic obstruction suspected per radiology. Objective - Vital Signs Vital signs: Vital Signs Temp 97.8 F 11/28/19 11:20 Pulse 77 11/28/19 11:20 Resp 16 11/28/19 11:20 BP 139/84 11/28/19 11:20 Pulse Ox 96 11/28/19 11:20 Intake & Output 11/27/19 11/28/19 11/28/19 18:59 06:59 18:59 Intake Total 1000 1500 1000 Balance 1000 1500 1000 Intake: Intake, IV Titration 1000 1500 1000 Amount Sodium Chloride 0.9% 1, 1000 1500 1000 000 ml @ 125 mls/hr IV . Q8H [facility] Rx#:[id number] Other: Voiding Method Bedside Commode Bedside Commode Bedside Commode Diaper Diaper Diaper # Voids 2 # Bowel Movements 1 2 1 - Exam Abdomen: Soft, minimal distention, mild mid abdominal tenderness, no rebound or guarding - Labs CBC & Chem 7: 11/25/19 16:13 11/25/19 16:13 Labs: Abnormal Lab Results - Last 24 Hours (Table) 11/25/19 Range/Units 16:13 CA 125 Antigen 3303.1 H (0.0-30.1) U/mL Assessment and Plan (1) Abdominal pain Narrative/Plan: 79-year-old female with abdominal pain. CAT scan findings as described. Will begin clear liquids at this time. We'll order unprepped BE tomorrow to evaluate for partial colonic obstruction. Current Visit: Yes Status: Acute Priority: High Code(s): R10.9 - UNSPECIFIED ABDOMINAL PAIN SNOMED Code(s): 19196282
--- NOTE | 2019-11-28 18:49 | P.PN ---
Subjective Progress Note Date: 11/28/19 Principal diagnosis: abd pain, ileus vs obstruction. Hx ovarian adeno Objective - Vital Signs Vital signs: Vital Signs Temp 97.8 F 11/28/19 11:20 Pulse 77 11/28/19 11:20 Resp 16 11/28/19 11:20 BP 139/84 11/28/19 11:20 Pulse Ox 96 11/28/19 11:20 Intake & Output 11/27/19 11/28/19 11/28/19 18:59 06:59 18:59 Intake Total 1000 1500 1000 Balance 1000 1500 1000 Intake: Intake, IV Titration 1000 1500 1000 Amount Sodium Chloride 0.9% 1, 1000 1500 1000 000 ml @ 125 mls/hr IV . Q8H [facility] Rx#:[id number] Other: Voiding Method Bedside Commode Bedside Commode Bedside Commode Diaper Diaper Diaper # Voids 2 # Bowel Movements 1 2 1 - Constitutional General appearance: Present: average body habitus, cooperative, no acute distress - EENT Eyes: Present: anicteric sclerae, EOMI ENT: Present: hearing grossly normal - Respiratory Respiratory: bilateral: CTA - Cardiovascular Rhythm: regular Heart sounds: normal: S1, S2 Abnormal Heart Sounds: Absent: systolic murmur, diastolic murmur, rub, S3 Gallop, S4 Gallop, click, other - Peripheral edema leg Peripheral Edema: bilateral: None - Gastrointestinal General gastrointestinal: Present: hyperactive bowel sounds (high pitched, tinkling), soft, tenderness - Integumentary Integumentary: Present: pale - Neurologic Neurologic: Present: CNII-XII intact - Musculoskeletal Musculoskeletal: Present: generalized weakness - Psychiatric Psychiatric: Present: A&O x's 3, appropriate affect, intact judgment & insight - Labs CBC & Chem 7: 11/25/19 16:13 11/25/19 16:13 Labs: Abnormal Lab Results - Last 24 Hours (Table) 11/25/19 Range/Units 16:13 CA 125 Antigen 3303.1 H (0.0-30.1) U/mL - Imaging and Cardiology CT scan - abdomen: report reviewed CT scan - pelvis: report reviewed Assessment and Plan (1) Abdominal pain Narrative/Plan: CT scan from today repot reviewed. Surgery is following with plans for a Barium enema tomorrow. Current Visit: Yes Status: Acute Priority: High Code(s): R10.9 - UNSPECIFIED ABDOMINAL PAIN SNOMED Code(s): 50415481 (2) Primary ovarian adenocarcinoma Narrative/Plan: Reviewed with the patient and her the significantly elevated CA 125. On 09/04 it was 1129 U/ml, now it is 3300 U/ml. Patient has been off her lynparza for 10-12 days. She had not been tolerating it for about the last 3-4 weeks, with persistent, progressive symptoms of weakness. We discussed that this is most suggestive of progressive malignancy. The CT scans, even though not convincing for massive widespread disease or significant changes, there is still the possibility that the malignancy is active. Patient and do understand that treatment would need to be changed. They also understand that the current situation needs to be managed before consideration for treatment can be discussed. We will continue to follow pt hospital course Current Visit: Yes Status: Chronic Priority: High Code(s): C56.9 - MALIGNANT NEOPLASM OF UNSPECIFIED OVARY SNOMED Code(s): 72179470 Time with Patient: Greater than 30 (counseling and coordinating care)
[2019-11-29] MEDS: SODIUM CHLORIDE 0.9% 1,000 ML IV SCH ×3 (01:47→20:30)
[2019-11-29] MEDS: MORPHINE SULFATE 4 MG/ML SYRINGE IV PRN (08:26)
[2019-11-29] MEDS: GABAPENTIN 300 MG CAP PO SCH ×3 (08:28→22:08)
[2019-11-29] MEDS: LOSARTAN 50 MG TAB PO SCH (08:28)
[2019-11-29] MEDS: VERAPAMIL SR 120 MG TABLET.ER PO SCH (08:28)
--- NOTE | 2019-11-29 11:06 | P.PN ---
Progress Note - Text Progress Note Date: 11/28/19 - Chief Complaint Abdominal pain History of presenting complaint: This is a pleasant 79-year-old patient of Dr. Koby Ace. History of ovarian serous adenocarcinoma. Had surgery 3 years ago at [facility]. Also had 2 rounds of chemotherapy. Loss from being about a year ago. Currently being followed by Dr. Segal. Did have a computed tomography scan remarkable was told everything is fine. Patient presents with 4 days of increasing lower abdominal pain. Had nausea vomiting yesterday. No fever no chills. Normally has a bowel movement every day. But had not had a bowel movement for 4 days. She did have a moderate amount of bowel movement today though. Appetite has not been good. Computed tomography scan of the ER was suggestive of ileus bowel obstruction could not be ruled out. Being managed conservatively right now. Repeat computed tomography scan on November 27 showed partial transverse colon obstruction Today-sitting upon a chair. Abdominal pain still present. Having some liquid stools. Results of computed tomography scan discussed. Awaiting further input from surgery. Review of systems: Was done for constitutional, cardiovascular, GI, pulmonary. relevant finding as above Active Medications Gabapentin (Neurontin) 300 mg PO TID [facility] Last Admin: 11/29/19 08:28 Dose: 300 mg Documented by: Sodium Chloride (Saline 0.9%) 1,000 mls @ 125 mls/hr IV .Q8H [facility] Last Admin: 11/29/19 01:47 Dose: Not Given Documented by: Ketorolac Tromethamine (Toradol) 15 mg IVP Q6HR PRN PRN Reason: Moderate Pain Stop: 11/30/19 20:05 Last Admin: 11/27/19 08:52 Dose: 15 mg Documented by: Losartan Potassium (Cozaar) 50 mg PO DAILY [facility] Last Admin: 11/29/19 08:28 Dose: 50 mg Documented by: Morphine Sulfate (Morphine Sulfate (Inj)) 2 mg IV Q4HR PRN PRN Reason: Severe Pain Last Admin: 11/29/19 08:26 Dose: 2 mg Documented by: Naloxone HCl (Narcan) 0.2 mg IV Q2M PRN PRN Reason: Opioid Reversal Ondansetron HCl (Zofran) 4 mg IVP Q8HR PRN PRN Reason: Nausea And Vomiting Last Admin: 11/26/19 07:41 Dose: 4 mg Documented by: Verapamil HCl (Isoptin Sr) 120 mg PO DAILY [facility] Last Admin: 11/29/19 08:28 Dose: 120 mg Documented by: Physical examination: VITAL SIGNS: 97.8, 77, 16, 139/84, 96% on 1 L GENERAL: Sitting up in a chair, slightly uncomfortable EYES: Pupils equal. Conjunctiva normal. HEENT: External appearance of nose and ears normal, oral cavity grossly normal. NECK: JVD not raised; masses not palpable. HEART: First and second heart sounds are normal; no edema. LUNGS: Respiratory rate normal; clear to auscultation. ABDOMEN: Soft, slightly distended, lower abdominal tenderness, no guarding or rigidity, bowel sounds are present, liver spleen not palpable, no masses palpable. PSYCH: Alert and oriented x3; mood and affect normal. INVESTIGATIONS, reviewed in the clinical context: None today Previous testing White count 8.2 hemoglobin 13.5 platelets 3514.5 bun 19 creatine 0.7 to Computed tomography scan of the abdomen and pelvis with contrast-moderate left pleural effusion, left lower lobe consolidation and atelectasis dilated fluid filled loops of small bowel, distended fluid-filled right: Computed tomography scan of the abdomen/November 27-possible transverse colon, partial obstruction Assessment: -This is a patient with prior intra-abdominal surgery with ovarian cancer now presented with 4 days of abdominal pain and distention and no bowel movement for 4 days. Repeat computed tomography scan is showing a partial obstruction of the transverse colon. Patient remains nothing by mouth. 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 Being followed by Dr. Segal. Concern is for return of intra-abdominal malignancy. 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 Patient may need surgical intervention. Recurrence of malignancy still possibility. Thank you Dr. Burris
--- NOTE | 2019-11-29 11:09 | P.PN ---
Subjective Progress Note Date: 11/29/19 CHIEF COMPLAINT: Bowel obstruction HISTORY OF PRESENT ILLNESS: The patient is a 79-year-old female admitted secondary to abdominal pain. Clinical workup demonstrates bowel obstruction. She reports minimal flatus. Her pain is controlled with morphine. She was tolerating clear liquid diet yesterday. She denies any abdominal distention. ROS: No reports of vomiting the last 24 hours. No bowel movements. No fevers or chills. No new chest pain. PHYSICAL EXAM: VITAL SIGNS: Reviewed CONSTITUTIONAL: Well developed and in no acute distress. EYES: Conjuctivae without sclera icterus. Extraocular movements grossly intact. HEAD, EARS, NOSE, THROAT: Moist buccal mucosa. Head is atraumatic, no rmocephalic. Hears conversational speech. No nasal drainage. NECK: Supple. RESPIRATORY: Non-labored respirations and equal bilateral excursions. CARDIOVASCULAR: Palpable 2+ radial pulses. ABDOMEN: Soft. No peritonitis. MUSCULOSKELETAL: No gross deformity of the lower extremities noted. No clubbing. No cyanosis. SKIN: Good skin turgor. Well perfused. NEUROLOGIC: Cranial nerves I through XII grossly intact. No focal or lateralizing signs. PSYCH: Appropriate affect. Alert and oriented to person, place and time. CLINICAL LABS: No new labs STUDIES: CT of the abdomen and pelvis independent review demonstrating moderately dilated cecum and ascending colon to proximal transverse colon. Decompression of the colon including descending colon and sigmoid identified. Separate large pleural effusion on the left identified ASSESSMENT: 1. Large bowel obstruction 2. History of ovarian cancer 3. Left pleural effusion PLAN: 1. Barium enema pending to identify severity of large bowel obstruction 2. Continue clear liquid diet as tolerated 3. Pending results of studies, may need future surgical intervention Objective - Vital Signs Vital signs: Vital Signs Temp 98.2 F 11/29/19 04:19 Pulse 75 11/29/19 04:19 Resp 18 11/29/19 04:19 BP 156/84 11/29/19 04:19 Pulse Ox 96 11/29/19 04:19 Intake & Output 11/28/19 11/29/19 11/29/19 18:59 06:59 18:59 Intake Total 1000 240 Output Total 1 Balance 1000 239 Weight 76.657 kg Intake: Intake, IV Titration 1000 Amount Sodium Chloride 0.9% 1, 1000 000 ml @ 125 mls/hr IV . Q8H [facility] Rx#:[id number] Oral 240 Output: Stool 1 Other: Voiding Method Bedside Commode Bedside Commode Toilet Diaper Diaper Bedside Commode Diaper # Voids 1 # Bowel Movements 1 - Labs CBC & Chem 7: 11/25/19 16:13 11/25/19 16:13 Assessment and Plan (1) Large bowel obstruction Current Visit: Yes Status: Acute Code(s): K56.609 - UNSP INTESTNL OBST, UNSP TO PARTIAL VERSUS COMPLETE OBST SNOMED Code(s): 184561415 (2) Pleural effusion, left Current Visit: Yes Status: Acute Code(s): J90 - PLEURAL EFFUSION, NOT ELSEWHERE CLASSIFIED SNOMED Code(s): 90420665 (3) Abdominal pain Current Visit: Yes Status: Acute Priority: High Code(s): R10.9 - UNSPECIFIED ABDOMINAL PAIN SNOMED Code(s): 03770736 (4) Primary ovarian adenocarcinoma Current Visit: Yes Status: Chronic Priority: High Code(s): C56.9 - MALIGNANT NEOPLASM OF UNSPECIFIED OVARY SNOMED Code(s): 48009864
--- NOTE | 2019-11-29 12:17 | FL ---
EXAMINATION TYPE: FL barium enema DATE OF EXAM: 11/29/2019 COMPARISON: CT abdomen pelvis 11/27/2019 HISTORY: Partial colonic obstruction TECHNIQUE: Single contrast barium enema FINDINGS: Presacral space is diffusely prominent. No suspicious corresponding abnormality on the CT e xam is evident. Note is made of scattered diverticuli within the distal sigmoid colon. There is irregular narrowing within the proximal transverse colon. Barium is refluxed through the col on to this region. A small amount contrast does extend into the dilated hepatic flexure. Cecum and as cending colon are not evaluated. IMPRESSION: 1. Irregular apple core narrowing through the proximal transverse colon suspicious for underlying ne oplasm. The proximal ascending colon is dilated but incompletely evaluated. Findings can be compatibl e with partial colonic bowel obstruction. 2. Distal sigmoid diverticulosis without acute diverticulitis.
--- NOTE | 2019-11-29 16:15 | P.PN ---
Subjective Progress Note Date: 11/29/19 Principal diagnosis: abd pain, ileus vs obstruction. Hx ovarian adeno In follow-up today patient has tolerated the barium enema, pending results. She still has pretty significant abdominal discomfort. She has been drinking clear liquids, denied nausea or vomiting. She is short of breath with activity but, she is very weak. Objective - Vital Signs Vital signs: Vital Signs Temp 98.0 F 11/29/19 11:37 Pulse 76 11/29/19 11:37 Resp 18 11/29/19 11:37 BP 140/64 11/29/19 11:37 Pulse Ox 94 L 11/29/19 11:37 Intake & Output 11/28/19 11/29/19 11/29/19 18:59 06:59 18:59 Intake Total 4187 861 3156 Output Total 1 Balance 6860 924 7331 Weight 76.657 kg Intake: Intake, IV Titration 1000 1000 Amount Sodium Chloride 0.9% 1, 1000 1000 000 ml @ 125 mls/hr IV . Q8H [facility] Rx#:[id number] Oral 240 Output: Stool 1 Other: Voiding Method Bedside Commode Bedside Commode Toilet Diaper Diaper Bedside Commode Diaper # Voids 1 # Bowel Movements 1 - Constitutional General appearance: Present: average body habitus, cooperative, no acute distress - EENT Eyes: Present: anicteric sclerae, EOMI ENT: Present: hearing grossly normal - Respiratory Respiratory: bilateral: CTA (weak effort) - Cardiovascular Heart sounds: normal: S1, S2 - Peripheral edema leg Peripheral Edema: bilateral: Trace - Gastrointestinal General gastrointestinal: Present: soft, tenderness Localized gastrointestinal: tender: diffuse (guarding) - Integumentary Integumentary: Present: pale - Neurologic Neurologic: Present: CNII-XII intact - Musculoskeletal Musculoskeletal: Present: generalized weakness - Psychiatric Psychiatric: Present: A&O x's 3, appropriate affect, intact judgment & insight - Labs CBC & Chem 7: 11/25/19 16:13 11/25/19 16:13 Assessment and Plan (1) Abdominal pain Narrative/Plan: Barium enema results pending, Surgery is following. Current Visit: Yes Status: Acute Priority: High Code(s): R10.9 - UNSPECIFIED ABDOMINAL PAIN SNOMED Code(s): 80965489 (2) Primary ovarian adenocarcinoma Narrative/Plan: CA 125 on 09/04 was 1129 U/ml, now it is 3300 U/ml. Patient has been off her lynparza for almost 14 days. She had not been tolerating it for about the last 3-4 weeks (actually shw is likely experiencing progressive disease as the reason for her progressive symptoms. Patient and do understand that treatment needs to be changed. Pt understands that the current situation needs to be managed before consideration for treatment can be discussed. We will await barium results and Surgical plan. We will continue to follow pt hospital course Current Visit: Yes Status: Chronic Priority: High Code(s): C56.9 - MALIGNANT NEOPLASM OF UNSPECIFIED OVARY SNOMED Code(s): 56761344
--- NOTE | 2019-11-29 19:14 | P.PN ---
Subjective Progress Note Date: 11/29/19 Principal diagnosis: Abdominal ileus versus obstruction 79-year-old female patient admitted due to abdominal pain; workup revealed possible bowel obstruction; patient does report passing some gas and has been tolerating clear liquid diet; denies any further vomiting; general surgery is following for possible large bowel obstruction in a patient with history of ovarian cancer; patient did have barium enema done to quantify severity of large bowel obstruction; surgery recommending to continue with clear liquid diet and further recommendations after their management results are available Objective - Vital Signs Vital signs: Vital Signs Temp 98.0 F 11/29/19 11:37 Pulse 76 11/29/19 11:37 Resp 18 11/29/19 11:37 BP 140/64 11/29/19 11:37 Pulse Ox 94 L 11/29/19 11:37 Intake & Output 11/28/19 11/29/19 11/29/19 18:59 06:59 18:59 Intake Total 2851 499 7749 Output Total 1 Balance 3367 876 8623 Weight 76.657 kg Intake: Intake, IV Titration 1000 1000 Amount Sodium Chloride 0.9% 1, 1000 1000 000 ml @ 125 mls/hr IV . Q8H [facility] Rx#:[id number] Oral 240 Output: Stool 1 Other: Voiding Method Bedside Commode Bedside Commode Toilet Diaper Diaper Bedside Commode Diaper # Voids 1 # Bowel Movements 1 - Exam PHYSICAL EXAMINATION: GENERAL: The patient is alert and oriented x3, not in any acute distress. Well developed, well nourished. HEENT: Pupils are round and equally reacting to light. EOMI. No scleral icterus. No conjunctival pallor. Normocephalic, atraumatic. No pharyngeal erythema. No thyromegaly. CARDIOVASCULAR: S1 and S2 present. No murmurs, rubs, or gallops. PULMONARY: Chest is clear to auscultation, no wheezing or crackles. ABDOMEN: Soft, nontender, nondistended, normoactive bowel sounds. No palpable organomegaly. MUSCULOSKELETAL: No joint swelling or deformity. EXTREMITIES: No cyanosis, clubbing, or pedal edema. NEUROLOGICAL: Gross neurological examination did not reveal any focal deficits. SKIN: No rashes. - Labs CBC & Chem 7: 11/25/19 16:13 11/25/19 16:13 Assessment and Plan Assessment: -This is a patient with prior intra-abdominal surgery with ovarian cancer now presented with 4 days of abdominal pain and distention and no bowel movement for 4 days. Repeat computed tomography scan is showing a partial obstruction of the transverse colon. Patient remains nothing by mouth. 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 Being followed by Dr. Segal. Concern is for return of intra-abdominal malignancy. 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 Patient may need surgical intervention. Recurrence of malignancy still possibility.
[2019-11-30] MEDS: SODIUM CHLORIDE 0.9% 1,000 ML IV SCH ×3 (02:27→16:06)
[2019-11-30] MEDS: GABAPENTIN 300 MG CAP PO SCH ×4 (08:25→21:29)
[2019-11-30] MEDS: LOSARTAN 50 MG TAB PO SCH (08:25)
[2019-11-30] MEDS: VERAPAMIL SR 120 MG TABLET.ER PO SCH (08:25)
--- NOTE | 2019-11-30 13:46 | P.PN ---
Subjective Progress Note Date: 11/30/19 CHIEF COMPLAINT: Bowel obstruction HISTORY OF PRESENT ILLNESS: The patient is a 79-year-old female admitted secondary to abdominal pain with bowel obstruction. At the time of admission, she reports passing liquid stools. She completed a barium enema yesterday. She is tolerating liquid diet. No reports of nausea and vomiting. ROS: No fevers or chills. No new chest pain. no productive sputum PHYSICAL EXAM: VITAL SIGNS: Reviewed CONSTITUTIONAL: Well developed and in no acute distress. EYES: Conjuctivae without sclera icterus. Extraocular movements grossly intact. HEAD, EARS, NOSE, THROAT: Moist buccal mucosa. Head is atraumatic, normocephalic. Hears conversational speech. No nasal drainage. NECK: Supple. RESPIRATORY: Non-labored respirations and equal bilateral excursions. CARDIOVASCULAR: Palpable 2+ radial pulses. ABDOMEN: Soft. Mild distention. Mild tenderness epigastrium MUSCULOSKELETAL: No gross deformity of the lower extremities noted. No clubbing. No cyanosis. SKIN: Good skin turgor. Well perfused. NEUROLOGIC: Cranial nerves I through XII grossly intact. No focal or lateralizing signs. PSYCH: Appropriate affect. Alert and oriented to person, place and time. CLINICAL LABS: No new labs STUDIES: Barium enema independent review demonstrated focal narrowing at the mid transverse colon. Contrast does pass proximally and distally however. ASSESSMENT: 1. Large bowel obstruction 2. History of ovarian cancer 3. Left pleural effusion PLAN: 1. Likely she will need surgical intervention for mechanical large bowel obstruction 2. Recommend slow bowel prep with a large bowel obstruction 3. Continue liquid diet 4. Will need full set of labs including type and screen Objective - Vital Signs Vital signs: Vital Signs Temp 98 F 11/30/19 12:17 Pulse 78 11/30/19 12:17 Resp 17 11/30/19 12:17 BP 130/59 11/30/19 12:17 Pulse Ox 97 11/30/19 12:17 Intake & Output 11/29/19 11/30/19 11/30/19 18:59 06:59 18:59 Intake Total 3186 805 2664 Output Total 1 Balance 1000 500 999 Weight 76.657 kg Intake: Intake, IV Titration 8484 227 0670 Amount Sodium Chloride 0.9% 1, 5069 515 3604 000 ml @ 125 mls/hr IV . Q8H [facility] Rx#:[id number] Output: Stool 1 Other: Voiding Method Toilet Toilet Toilet Bedside Commode Diaper Diaper Diaper # Voids 1 1 - Labs CBC & Chem 7: 11/25/19 16:13 11/25/19 16:13 Assessment and Plan (1) Large bowel obstruction Current Visit: Yes Status: Acute Code(s): K56.609 - UNSP INTESTNL OBST, UNSP TO PARTIAL VERSUS COMPLETE OBST SNOMED Code(s): 341354542 (2) Pleural effusion, left Current Visit: Yes Status: Acute Code(s): J90 - PLEURAL EFFUSION, NOT ELSEWHERE CLASSIFIED SNOMED Code(s): 73072136 (3) Abdominal pain Current Visit: Yes Status: Acute Priority: High Code(s): R10.9 - UNSPECIFIED ABDOMINAL PAIN SNOMED Code(s): 55256539 (4) Primary ovarian adenocarcinoma Current Visit: Yes Status: Chronic Priority: High Code(s): C56.9 - MALIGNANT NEOPLASM OF UNSPECIFIED OVARY SNOMED Code(s): 53395746
[2019-11-30] MEDS ORDERED: POLYETHYLENE GLYCOL LYTES SOLN 4,000 ML SOLN.RECON PO ONE (14:00)
--- NOTE | 2019-11-30 16:43 | P.PN ---
Subjective Progress Note Date: 11/30/19 Principal diagnosis: Abdominal ileus versus obstruction 79-year-old female patient admitted due to abdominal pain; workup revealed possible bowel obstruction; patient does report passing some gas and has been tolerating clear liquid diet; denies any further vomiting; general surgery is following for possible large bowel obstruction in a patient with history of ovarian cancer; patient did have barium enema done to quantify severity of large bowel obstruction; surgery recommending to continue with clear liquid diet and further recommendations after their management results are available 11/30/2019 Patient is seen and evaluated in room with family at bedside; has been started on full liquid diet; barium enema is resulted and shows apple core narrowing and transverse colon with partial bowel obstruction; surgery is following and recommending surgical intervention for mechanical large bowel obstruction; patient will have slow bowel prep due to obstruction; blood work will be done including type and screen in preparation for surgery; patient remains on a liquid diet Objective - Vital Signs Vital signs: Vital Signs Temp 98.1 F 11/30/19 05:00 Pulse 61 11/30/19 08:00 Resp 16 11/30/19 08:00 BP 160/86 11/30/19 05:00 Pulse Ox 94 L 11/30/19 05:00 Intake & Output 11/29/19 11/30/19 11/30/19 18:59 06:59 18:59 Intake Total 0715 881 1593 Output Total 1 Balance 1000 500 999 Weight 76.657 kg Intake: Intake, IV Titration 2298 667 5748 Amount Sodium Chloride 0.9% 1, 9040 099 4266 000 ml @ 125 mls/hr IV . Q8H [facility] Rx#:[id number] Output: Stool 1 Other: Voiding Method Toilet Toilet Toilet Bedside Commode Diaper Diaper Diaper # Voids 1 1 - Exam PHYSICAL EXAMINATION: GENERAL: The patient is alert and oriented x3, not in any acute distress. Well developed, well nourished. HEENT: Pupils are round and equally reacting to light. EOMI. No scleral icterus. No conjunctival pallor. Normocephalic, atraumatic. No pharyngeal erythema. No thyromegaly. CARDIOVASCULAR: S1 and S2 present. No murmurs, rubs, or gallops. PULMONARY: Chest is clear to auscultation, no wheezing or crackles. ABDOMEN: Soft, nontender, nondistended, normoactive bowel sounds. No palpable organomegaly. MUSCULOSKELETAL: No joint swelling or deformity. EXTREMITIES: No cyanosis, clubbing, or pedal edema. NEUROLOGICAL: Gross neurological examination did not reveal any focal deficits. SKIN: No rashes. - Labs CBC & Chem 7: 11/25/19 16:13 11/25/19 16:13 Assessment and Plan Assessment: -This is a patient with prior intra-abdominal surgery with ovarian cancer now presented with 4 days of abdominal pain and distention and no bowel movement for 4 days. Repeat computed tomography scan is showing a partial obstruction of the transverse colon. Patient remains nothing by mouth. 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 Being followed by Dr. Segal. Concern is for return of intra-abdominal malignancy. 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 Patient may need surgical intervention. Recurrence of malignancy still possibility.
[2019-12-01] MEDS: SODIUM CHLORIDE 0.9% 1,000 ML IV SCH ×3 (03:00→16:40)
[2019-12-01 07:41] LABS: Anisocytosis Slight; Basophils % (A) 1 %; Eosinophils % (A) 1 %; HCT 37.5 % (34.0-46.0); HGB 11.7 gm/dL (11.4-16.0); Hypochromasia Slight; Lymphocytes # (A) 1.3 k/uL (1.0-4.8); Lymphocytes % (A) 23 %; MCH 38.7 pg (25.0-35.0); MCHC 31.3 g/dL (31.0-37.0); MCV 123.7 fL (80.0-100.0); Macrocytosis Marked; Mean Platelet Volume 8.3; Monocytes # (A) 0.5 k/uL (0-1.0); Monocytes % (A) 8 %; Neutrophils # (A) 3.8 k/uL (1.3-7.7); Neutrophils % (A) 65 %; Platelet Count 408 k/uL (150-450); RBC 3.03 m/uL (3.80-5.40); RDW 16.2 % (11.5-15.5); WBC 5.8 k/uL (3.8-10.6)
[2019-12-01 07:46] LABS: African American GFR (CKD) >90 (>60 ml/min/1.73 sqM); Anion Gap 4 mmol/L; Blood Urea Nitrogen 2 mg/dL (7-17); Calcium 8.6 mg/dL (8.4-10.2); Carbon Dioxide 27 mmol/L (22-30); Chloride 108 mmol/L (98-107); Glucose 87 mg/dL (74-99); Non-African American GFR(CKD) 89 (>60 ml/min/1.73 sqM); Potassium 3.6 mmol/L (3.5-5.1); Sodium 139 mmol/L (137-145)
[2019-12-01] MEDS: VERAPAMIL SR 120 MG TABLET.ER PO SCH (08:22)
[2019-12-01] MEDS: GABAPENTIN 300 MG CAP PO SCH ×3 (08:22→20:33)
[2019-12-01] MEDS: LOSARTAN 50 MG TAB PO SCH (08:22)
[2019-12-01 08:51] LABS: Howell-Jolly Bodies Present
--- NOTE | 2019-12-01 15:28 | P.PN ---
Subjective Progress Note Date: 12/01/19 CHIEF COMPLAINT: Bowel obstruction HISTORY OF PRESENT ILLNESS: The patient is a 79-year-old female admitted secondary to abdominal pain with bowel obstruction. She had a barium enema confirming a mid transverse colon obstruction. She was placed on a GoLYTELY prep and is tolerating. She reports green stools. She is passing flatus. Family is at bedside. She reports gastroesophageal reflux disease. ROS: No fevers or chills. No new chest pain. No productive sputum PHYSICAL EXAM: VITAL SIGNS: Reviewed CONSTITUTIONAL: Well developed and in no acute distress. EYES: Conjuctivae without sclera icterus. Extraocular movements grossly intact. HEAD, EARS, NOSE, THROAT: Moist buccal mucosa. Head is atraumatic, normocephalic. Hears conversational speech. No nasal drainage. NECK: Supple. RESPIRATORY: Non-labored respirations and equal bilateral excursions. CARDIOVASCULAR: Palpable 2+ radial pulses. ABDOMEN: Soft. No peritonitis MUSCULOSKELETAL: No gross deformity of the lower extremities noted. No clubbing. No cyanosis. SKIN: Good skin turgor. Well perfused. NEUROLOGIC: Cranial nerves I through XII grossly intact. No focal or lateralizing signs. PSYCH: Appropriate affect. Alert and oriented to person, place and time. CLINICAL LABS: WBC normal ASSESSMENT: 1. Large bowel obstruction 2. History of ovarian cancer 3. Left pleural effusion 4. Gastroesophageal reflux disease PLAN: 1. She is tolerating her bowel prep. 2. May likely need colectomy secondary to large bowel obstruction 3. Start Protonix for gastroesophageal reflux disease Objective - Vital Signs Vital signs: Vital Signs Temp 98.4 F 12/01/19 12:16 Pulse 86 12/01/19 15:02 Resp 17 12/01/19 15:02 BP 123/69 12/01/19 12:16 Pulse Ox 93 L 12/01/19 12:16 Intake & Output 11/30/19 12/01/19 12/01/19 18:59 06:59 18:59 Intake Total 0010 632 0643 Output Total 1 1 2 Balance 999 499 998 Weight 76.657 kg Intake: Intake, IV Titration 7563 250 7892 Amount Sodium Chloride 0.9% 1, 0113 694 7342 000 ml @ 125 mls/hr IV . Q8H [facility] Rx#:[id number] Output: Stool 1 1 2 Other: Voiding Method Toilet Toilet Toilet Diaper Diaper Diaper # Voids 1 # Bowel Movements 1 - Labs CBC & Chem 7: 12/01/19 07:14 12/01/19 07:14 Labs: Abnormal Lab Results - Last 24 Hours (Table) 12/01/19 12/01/19 Range/Units 07:14 07:14 RBC 3.03 L (3.80-5.40) m/uL MCV 123.7 H (80.0-100.0) fL MCH 38.7 H (25.0-35.0) pg RDW 16.2 H (11.5-15.5) % Macrocytosis Marked A Chloride 108 H (98-107) mmol/L BUN 2 L (7-17) mg/dL Assessment and Plan (1) Large bowel obstruction Current Visit: Yes Status: Acute Code(s): K56.609 - UNSP INTESTNL OBST, UNSP TO PARTIAL VERSUS COMPLETE OBST SNOMED Code(s): 416710728 (2) Pleural effusion, left Current Visit: Yes Status: Acute Code(s): J90 - PLEURAL EFFUSION, NOT ELSEWHERE CLASSIFIED SNOMED Code(s): 15864047 (3) Abdominal pain Current Visit: Yes Status: Acute Priority: High Code(s): R10.9 - UNSPECIFIED ABDOMINAL PAIN SNOMED Code(s): 96130499 (4) Primary ovarian adenocarcinoma Current Visit: Yes Status: Chronic Priority: High Code(s): C56.9 - MALIGNANT NEOPLASM OF UNSPECIFIED OVARY SNOMED Code(s): 62016543
--- NOTE | 2019-12-01 15:45 | P.PN ---
Subjective Progress Note Date: 12/01/19 Principal diagnosis: Abdominal ileus versus obstruction 79-year-old female patient admitted due to abdominal pain; workup revealed possible bowel obstruction; patient does report passing some gas and has been tolerating clear liquid diet; denies any further vomiting; general surgery is following for possible large bowel obstruction in a patient with history of ovarian cancer; patient did have barium enema done to quantify severity of large bowel obstruction; surgery recommending to continue with clear liquid diet and further recommendations after their management results are available 11/30/2019 Patient is seen and evaluated in room with family at bedside; has been started on full liquid diet; barium enema is resulted and shows apple core narrowing and transverse colon with partial bowel obstruction; surgery is following and recommending surgical intervention for mechanical large bowel obstruction; patient will have slow bowel prep due to obstruction; blood work will be done including type and screen in preparation for surgery; patient remains on a liquid diet 12/01/2019 Patient is seen in room with and daughter at bedside; patient had barium enema done showing mid transverse colon obstruction; surgery is following and recommending likely need for colectomy due to mechanical large follow obstruction; patient has been started on bowel prep with GoLYTELY Objective - Vital Signs Vital signs: Vital Signs Temp 98.8 F 12/01/19 05:00 Pulse 70 12/01/19 08:00 Resp 16 12/01/19 08:00 BP 149/74 12/01/19 05:00 Pulse Ox 94 L 12/01/19 05:00 Intake & Output 11/30/19 12/01/19 12/01/19 18:59 06:59 18:59 Intake Total 1000 500 Output Total 1 1 1 Balance 999 499 -1 Intake: Intake, IV Titration 1000 500 Amount Sodium Chloride 0.9% 1, 1000 500 000 ml @ 125 mls/hr IV . Q8H [facility] Rx#:[id number] Output: Stool 1 1 1 Other: Voiding Method Toilet Toilet Toilet Diaper Diaper Diaper # Voids 1 # Bowel Movements 1 - Exam PHYSICAL EXAMINATION: GENERAL: The patient is alert and oriented x3, not in any acute distress. Well developed, well nourished. HEENT: Pupils are round and equally reacting to light. EOMI. No scleral icterus. No conjunctival pallor. Normocephalic, atraumatic. No pharyngeal erythema. No thyromegaly. CARDIOVASCULAR: S1 and S2 present. No murmurs, rubs, or gallops. PULMONARY: Chest is clear to auscultation, no wheezing or crackles. ABDOMEN: Soft, nontender, nondistended, normoactive bowel sounds. No palpable organomegaly. MUSCULOSKELETAL: No joint swelling or deformity. EXTREMITIES: No cyanosis, clubbing, or pedal edema. NEUROLOGICAL: Gross neurological examination did not reveal any focal deficits. SKIN: No rashes. - Labs CBC & Chem 7: 12/01/19 07:14 12/01/19 07:14 Labs: Abnormal Lab Results - Last 24 Hours (Table) 12/01/19 12/01/19 Range/Units 07:14 07:14 RBC 3.03 L (3.80-5.40) m/uL MCV 123.7 H (80.0-100.0) fL MCH 38.7 H (25.0-35.0) pg RDW 16.2 H (11.5-15.5) % Macrocytosis Marked A Chloride 108 H (98-107) mmol/L BUN 2 L (7-17) mg/dL Assessment and Plan Assessment: -This is a patient with prior intra-abdominal surgery with ovarian cancer now presented with 4 days of abdominal pain and distention and no bowel movement for 4 days. Repeat computed tomography scan is showing a partial obstruction of the transverse colon. Patient remains nothing by mouth. 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 Being followed by Dr. Segal. Concern is for return of intra-abdominal malignancy. 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 Patient may need surgical intervention. Recurrence of malignancy still possibility. Time with Patient: Greater than 30
[2019-12-01] MEDS: PANTOPRAZOLE 40 MG TABLET PO SCH (16:40)
[2019-12-01] MEDS ORDERED: CALCIUM CARBONATE 500 MG CHEWABLE PO PRN (19:21)
[2019-12-01] MEDS: CALCIUM CARBONATE 500 MG CHEWABLE PO PRN (19:58)
--- NOTE | 2019-12-01 21:10 | P.PN ---
Subjective Progress Note Date: 12/01/19 The patient has not had any significant improvement in terms of bowel function. She is continued to have passage of liquid stool, which is somewhat increased breakdown due to ongoing bowel prep. With bowel rest, she has not had nausea or vomiting. She continues to have somewhat generalized abdominal distention. Objective - Vital Signs Vital signs: Vital Signs Temp 98.4 F 12/01/19 12:16 Pulse 86 12/01/19 15:02 Resp 17 12/01/19 15:02 BP 123/69 12/01/19 12:16 Pulse Ox 93 L 12/01/19 12:16 Intake & Output 11/30/19 12/01/19 12/01/19 18:59 06:59 18:59 Intake Total 1942 613 5645 Output Total 1 1 2 Balance 999 499 998 Weight 76.657 kg Intake: Intake, IV Titration 2352 324 5080 Amount Sodium Chloride 0.9% 1, 1306 437 1893 000 ml @ 125 mls/hr IV . Q8H [facility] Rx#:[id number] Output: Stool 1 1 2 Other: Voiding Method Toilet Toilet Toilet Diaper Diaper Diaper # Voids 1 # Bowel Movements 1 - Constitutional General appearance: Present: no acute distress - EENT Eyes: Present: EOMI ENT: Present: hearing grossly normal, normal oropharynx - Respiratory Respiratory: bilateral: diminished - Cardiovascular Rhythm: regular Heart sounds: normal: S1, S2 - Gastrointestinal General gastrointestinal: Present: hyperactive bowel sounds - Integumentary Integumentary: Present: normal - Neurologic Neurologic: Present: CNII-XII intact - Musculoskeletal Musculoskeletal: Present: generalized weakness, strength equal bilaterally - Psychiatric Psychiatric: Present: A&O x's 3, appropriate affect - Labs CBC & Chem 7: 12/01/19 07:14 12/01/19 07:14 Labs: Abnormal Lab Results - Last 24 Hours (Table) 12/01/19 12/01/19 Range/Units 07:14 07:14 RBC 3.03 L (3.80-5.40) m/uL MCV 123.7 H (80.0-100.0) fL MCH 38.7 H (25.0-35.0) pg RDW 16.2 H (11.5-15.5) % Macrocytosis Marked A Chloride 108 H (98-107) mmol/L BUN 2 L (7-17) mg/dL Assessment and Plan (1) Large bowel obstruction Narrative/Plan: The clinical course so far, as well as imaging including very minima indicate mechanical obstruction rather than an ileus. As the area of concern appears to be limited on imaging, agree with current plan according to the surgical service for surgical intervention. Patient is undergoing prep for the same. It was discussed with the patient and her family, that the presentation could potentially be due to nonmalignant cause such elevations, but progression of malignancy in itself is obviously a major differential. Possible interventions such as resection and anastomosis, bypass, or even ostomy were discussed. The actual intervention would obviously depend on findings at the time of surgery and surgical decision making Current Visit: Yes Status: Acute Code(s): K56.609 - UNSP INTESTNL OBST, UNSP TO PARTIAL VERSUS COMPLETE OBST SNOMED Code(s): 423358348 (2) Primary ovarian adenocarcinoma Narrative/Plan: The current presentation is concerning for progression. The patient's tumor markers have shown an increase. Therefore if obstruction due to tumor is found at surgery, then this would further support progression. In that case the patient would need consideration for possible change of therapy once the acute situation is sufficiently resolved Current Visit: Yes Status: Chronic Priority: High Code(s): C56.9 - MALIGNANT NEOPLASM OF UNSPECIFIED OVARY SNOMED Code(s): 93929143
[2019-12-02] MEDS: CALCIUM CARBONATE 500 MG CHEWABLE PO PRN (05:01)
[2019-12-02] MEDS: SODIUM CHLORIDE 0.9% 1,000 ML IV SCH ×3 (05:01→17:19)
[2019-12-02 09:11] LABS: Anisocytosis Slight; HGB 11.3 gm/dL (11.4-16.0); Hypochromasia Slight; MCH 39.6 pg (25.0-35.0); MCHC 32.2 g/dL (31.0-37.0); MCV 123.2 fL (80.0-100.0); Macrocytosis Marked; Mean Platelet Volume 9.4; Platelet Count 368 k/uL (150-450); RBC 2.84 m/uL (3.80-5.40); RDW 16.1 % (11.5-15.5); WBC 5.5 k/uL (3.8-10.6)
[2019-12-02 09:19] LABS: African American GFR (CKD) >90 (>60 ml/min/1.73 sqM); Anion Gap 5 mmol/L; Blood Urea Nitrogen <2 mg/dL (7-17); Calcium 8.3 mg/dL (8.4-10.2); Carbon Dioxide 25 mmol/L (22-30); Chloride 108 mmol/L (98-107); Glucose 81 mg/dL (74-99); Non-African American GFR(CKD) 89 (>60 ml/min/1.73 sqM); Potassium 3.5 mmol/L (3.5-5.1); Sodium 138 mmol/L (137-145)
[2019-12-02] MEDS: GABAPENTIN 300 MG CAP PO SCH ×3 (10:28→21:07)
[2019-12-02] MEDS: PANTOPRAZOLE 40 MG TABLET PO SCH ×2 (10:28→17:38)
[2019-12-02] MEDS: LOSARTAN 50 MG TAB PO SCH ×2 (10:29→19:55)
[2019-12-02] MEDS: VERAPAMIL SR 120 MG TABLET.ER PO SCH ×2 (10:29→19:55)
[2019-12-02 11:11] LABS: Basophils # (M) 0.06 k/uL (0-0.2); Eosinophils # (M) 0.06 k/uL (0-0.7); Lymphocytes # (M) 0.83 k/uL (1.0-4.8); Neutrophils # (M) 4.07 k/uL (1.3-7.7); Neutrophils % (M) 74 %; Nucleated Red Blood Cells 0 /100 WBC (0-0); Total Cells Counted 100
[2019-12-02 11:13] LABS: Howell-Jolly Bodies Present
[2019-12-02 11:14] LABS: Target Cells Present
[2019-12-02] MEDS ORDERED: IV FLUID CONTINUATION 1,000 ML IV ONE (12:17)
[2019-12-02] MEDS ORDERED: HYDROmorphone 0.5 MG/0.5 ML SYRINGE IVP ONE (12:52)
[2019-12-02] MEDS ORDERED: HEPARIN SODIUM,PORCINE 5,000 UNIT/ML 1 ML VIAL SQ ONE (13:16)
--- NOTE | 2019-12-02 14:08 | P.PN ---
Progress Note - Text Progress Note Date: 12/02/19 Patient's very minimal is reviewed from last week. Patient has a partial obstruction colon and the transverse colon. Patient will undergo exploratory laparotomy and partial colectomy with possible colostomy today.
[2019-12-02] MEDS ORDERED: GLYCOPYRROLATE 0.2 MG/ML 2 ML VIAL ONE (14:37)
[2019-12-02] MEDS ORDERED: HYDROmorphone (PF) 1 MG/ML ONE (14:37)
[2019-12-02] MEDS ORDERED: MIDAZOLAM 2 MG/2 ML VIAL ONE (14:37)
[2019-12-02] MEDS ORDERED: LIDOCAINE 1% INJ 10MG/ML (20 ML MDV) ONE (14:37)
[2019-12-02] MEDS ORDERED: KETAMINE 10 MG/ML 20 ML VIAL ONE (14:37)
[2019-12-02] MEDS ORDERED: diphenhydrAMINE 50 MG/ML 1 ML VIAL ONE (14:37)
[2019-12-02] MEDS ORDERED: PROPOFOL 10 MG/ML 20 ML VIAL IV ONE (14:37)
[2019-12-02] MEDS ORDERED: fentaNYL (PF) 50 MCG/ML 2 ML AMP ONE (14:37)
[2019-12-02] MEDS ORDERED: ROCURONIUM BROMIDE 10 MG/ML 10 ML VIAL IV ONE (14:37)
[2019-12-02] MEDS ORDERED: SUCCINYLCHOLINE CHLORIDE 100 MG/5 ML SYR IV ONE (14:37)
[2019-12-02] MEDS ORDERED: NEOSTIGMINE 1 MG/ML 10 ML VIAL ONE (14:37)
[2019-12-02] MEDS: metroNIDAZOLE-NS PMX 500 MG in SALINE 1 100ML.BAG IVPB STA ×2 (14:45→14:59)
[2019-12-02] MEDS ORDERED: LACTATED RINGERS 1,000 ML IV ONE ×2 (15:01→15:42)
--- NOTE | 2019-12-02 15:40 | P.OP ---
Date of Procedure: 12/02/19 Preoperative Diagnosis: Transverse colon obstruction Postoperative Diagnosis: Carcinomatosis with frozen abdomen Procedure(s) Performed: Exposure laparotomy Lysis of adhesion Anesthesia: FARHAD Surgeon: Lupillo Burris Estimated Blood Loss (ml): 20 Pathology: none sent Condition: stable Disposition: PACU Description of Procedure: The patient's placed on the operating table in supine position. She received general anesthesia. Her abdomen was prepped and draped usual sterile fashion. A midline skin incision was made through previous scar. Using a electrocautery the subcutaneous tissues and fascia were divided. The peritoneum was opened in the periumbilical area. Several adhesions were lysed. There was some ascites in the abdominal cavity. At this point it was found to be a frozen abdomen. There is extensive carcinomatosis with ovarian metastatic disease studding throughout the visualized peritoneal cavity. There was significant studding of the small bowel and visualized colon. At this point it was felt that there was too much disease present to safely continue the dissection. There was fear of injuring the bowel. At this point the fascia was closed with looped #1 PDS suture. Skin was all stapled. Patient top she will was sent to recovery room in stable condition.
[2019-12-02] MEDS ORDERED: NALOXONE 0.4 MG/ML 1 ML VIAL IV PRN (15:42)
[2019-12-02] MEDS ORDERED: HYDROmorphone 0.5 MG/0.5 ML SYRINGE IVP PRN (15:42)
[2019-12-02] MEDS ORDERED: ACETAMINOPHEN TAB 325 MG TAB PO PRN (15:42)
[2019-12-02] MEDS ORDERED: ACETAMINOPHEN IV (For NPO) 1,000 MG/100 ML VIAL IVPB ONE (16:06)
[2019-12-02 16:28] VITALS: BMI 26.6
[2019-12-02] MEDS: MORPHINE SULFATE 4 MG/ML SYRINGE IV PRN (18:08)
[2019-12-02] MEDS: HYDROcodone/APAP 5-325MG 1 EACH TAB PO PRN (19:58)
[2019-12-02] MEDS: ONDANSETRON 4 MG/2 ML VIAL IVP PRN (20:03)
[2019-12-02] MEDS ORDERED: hydrALAZINE HCL 20 MG/ML 1 ML VIAL IVP PRN (20:09)
[2019-12-02] MEDS ORDERED: BENZOCAINE/MENTHOL LOZENG 1 EACH LOZENGE MUCOUS MEM PRN (20:09)
--- NOTE | 2019-12-02 23:44 | PN ---
PROGRESS NOTE DATE OF SERVICE: 12/02/2019 This 79-year-old woman who was admitted with bowel obstruction underwent exploratory laparotomy, lysis of adhesions for carcinomatosis and frozen abdomen by Dr. Burris today. The patient had history of ovarian carcinoma, there was some ascites also noted during the surgery. Extensive carcinomatosis of disease throughout was visualized. No chest pain. No palpitations. No fever. EXAM: Alert and oriented x3. Pulse 89, blood pressure 186/96, respirations 17, temperature normal, pulse ox 94% on 3 L. HEENT is conjunctivae normal. NECK: No JVD. CARDIOVASCULAR: S1, S2 muffled. RESPIRATIONS: Breath sounds diminished in the bases. Scattered rhonchi. No crackles. ABDOMEN soft. Status post surgery. LEGS are no edema. No swelling. CENTRAL NERVOUS SYSTEM: No focal deficits. LABORATORY DATA: WBC 5.2, hemoglobin 11.3. Sodium 130. Potassium 5.5. ASSESSMENT: 1. Acute bowel obstruction with bowel distention secondary to peritoneal carcinomatosis, status post exploratory laparotomy, and lysis of adhesions. 2. Hypertension. 3. Urinary incontinence. 4. Peripheral neuropathy secondary to chemotherapy. 5. CA-125 3303. 6. Anemia, macrocytic, secondary to malignancy, possibly. 7. History of deep vein thrombosis remotely. 8. History of melanoma. 9. FULL CODE. RECOMMENDATIONS AND DISCUSSION: In this 79-year-old woman who presented after surgery, at this time, I recommend to continue the current medications, management and symptomatic treatment. Otherwise DVT prophylaxis which is initiating with Lovenox 40 mg subcu daily. Continue the current medications. Continue the antibiotics. Closely follow with multiple consultants. Prognosis guarded. Further recommendations to follow. We will cut down the IV fluids. See orders for details. MMODL / IJN: [id number] / MTDD
[2019-12-03] MEDS: SODIUM CHLORIDE 0.9% 1,000 ML IV SCH (02:44)
[2019-12-03 06:29] LABS: African American GFR (CKD) >90 (>60 ml/min/1.73 sqM); Anion Gap 6 mmol/L; Blood Urea Nitrogen 3 mg/dL (7-17); Calcium 7.9 mg/dL (8.4-10.2); Carbon Dioxide 28 mmol/L (22-30); Chloride 102 mmol/L (98-107); Glucose 85 mg/dL (74-99); Non-African American GFR(CKD) >90 (>60 ml/min/1.73 sqM); Potassium 3.1 mmol/L (3.5-5.1); Sodium 136 mmol/L (137-145)
[2019-12-03 06:30] LABS: Anisocytosis Slight; Basophils % (A) 1 %; Eosinophils # (A) 0.1 k/uL (0-0.7); Eosinophils % (A) 1 %; HCT 35.4 % (34.0-46.0); HGB 11.3 gm/dL (11.4-16.0); Hypochromasia Slight; Lymphocytes # (A) 1.2 k/uL (1.0-4.8); Lymphocytes % (A) 19 %; MCHC 31.9 g/dL (31.0-37.0); Macrocytosis Marked; Monocytes # (A) 0.3 k/uL (0-1.0); Monocytes % (A) 5 %; Neutrophils # (A) 4.6 k/uL (1.3-7.7); Neutrophils % (A) 73 %; Platelet Count 362 k/uL (150-450); RDW 16.1 % (11.5-15.5); WBC 6.3 k/uL (3.8-10.6)
[2019-12-03 06:32] LABS: MCV 122.1 fL (80.0-100.0)
[2019-12-03] MEDS: VERAPAMIL SR 120 MG TABLET.ER PO SCH (08:43)
[2019-12-03] MEDS: ENOXAPARIN 40 MG/0.4 ML SYRINGE SQ SCH (08:44)
[2019-12-03] MEDS: LOSARTAN 50 MG TAB PO SCH (08:44)
[2019-12-03] MEDS: GABAPENTIN 300 MG CAP PO SCH ×3 (08:44→21:04)
[2019-12-03] MEDS: PANTOPRAZOLE 40 MG TABLET PO SCH ×2 (08:44→18:00)
[2019-12-03] MEDS ORDERED: Potassium Replacement Protocol 1 EACH MISC MISCELLANE PRN (09:32)
[2019-12-03] MEDS: HYDROcodone/APAP 5-325MG 1 EACH TAB PO PRN ×2 (09:38→14:42)
[2019-12-03] MEDS: POTASSIUM CHLORIDE 20 MEQ in WATER FOR INJECTION 1 100ML.BAG IVPB SCH ×3 (11:09→16:21)
[2019-12-03] MEDS: 0.9% NACL WITH KCL 40 MEQ/L 1,000 ML IV SCH (13:33)
--- NOTE | 2019-12-03 13:44 | P.PN ---
Subjective Progress Note Date: 12/03/19 CHIEF COMPLAINT: nausea HISTORY OF PRESENT ILLNESS: Patient is status post exploratory laparotomy with lysis of adhesions. 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 Patient examined this morning at the bedside. She reports abdominal pain. Denies nausea or vomiting. Denies passing flatus. PHYSICAL EXAM: VITAL SIGNS: Reviewed. GENERAL: Well-developed in no acute distress. HEENT: No sclera icterus. Extraocular movements grossly intact. Moist buccal mucosa. Head is atraumatic, normocephalic. ABDOMEN: Soft. Incision clean dry intact. Appropriate surgical tenderness. NEUROLOGIC: Alert and oriented. Cranial nerves II through XII grossly intact. ASSESSMENT: 1. Carcinomatosis with frozen abdomen 2. History of ovarian cancer PLAN: Begin clear liquid diet Await further recommendations from oncology Nurse practitioner note has been reviewed by physician. Signing provider agrees with the documented findings, assessment, and plan of care. Objective - Vital Signs Vital signs: Vital Signs Temp 99.8 F H 12/03/19 11:31 Pulse 96 12/03/19 11:31 Resp 16 12/03/19 11:31 BP 137/76 12/03/19 11:31 Pulse Ox 93 L 12/03/19 11:31 Intake & Output 12/02/19 12/03/19 12/03/19 18:59 06:59 18:59 Intake Total 850 350 Output Total 340 851 Balance 510 -501 Weight 77 kg Intake: IV 850 Intake, IV Titration 350 Amount Lactated Ringers 1,000 ml 350 @ 0 mls/hr [facility][id number] Output: Urine 325 850 Stool 1 Estimated Blood Loss 15 Other: Voiding Method Indwelling Catheter Indwelling Catheter Indwelling Catheter - Labs CBC & Chem 7: 12/03/19 06:07 12/03/19 06:07 Labs: Abnormal Lab Results - Last 24 Hours (Table) 12/03/19 12/03/19 Range/Units 06:07 06:07 RBC 2.90 L (3.80-5.40) m/uL Hgb 11.3 L (11.4-16.0) gm/dL MCV 122.1 H (80.0-100.0) fL MCH 39.0 H (25.0-35.0) pg RDW 16.1 H (11.5-15.5) % Macrocytosis Marked A Sodium 136 L (137-145) mmol/L Potassium 3.1 L (3.5-5.1) mmol/L BUN 3 L (7-17) mg/dL Calcium 7.9 L (8.4-10.2) mg/dL
--- NOTE | 2019-12-03 17:27 | P.PN ---
Subjective Progress Note Date: 12/03/19 Principal diagnosis: abd pain, ileus vs obstruction. Hx ovarian adeno In follow-up today patient is upset because of her condition and disease progression. She has not passed gas today, no stool, she is concerned about abd pain and cramping, not having any at the moment, denied nausea or vomiting. Objective - Vital Signs Vital signs: Vital Signs Temp 99.8 F H 12/03/19 11:31 Pulse 96 12/03/19 11:31 Resp 16 12/03/19 11:31 BP 137/76 12/03/19 11:31 Pulse Ox 93 L 12/03/19 11:31 Intake & Output 12/02/19 12/03/19 12/03/19 18:59 06:59 18:59 Intake Total 850 350 100 Output Total 340 851 Balance 510 -501 100 Weight 77 kg 77 kg Intake: IV 850 Intake, IV Titration 350 100 Amount Lactated Ringers 1,000 ml 350 @ 0 mls/hr IV .[facility] Rx#:[id number] Potassium Chloride 20 meq 100 In Water For Injection 1 100ml.bag @ 50 mls/hr IVPB Q2H [facility] Rx#: [id number] Output: Urine 325 850 Stool 1 Estimated Blood Loss 15 Other: Voiding Method Indwelling Catheter Indwelling Catheter Indwelling Catheter - Constitutional General appearance: Present: average body habitus, cooperative, mild distress - EENT Eyes: Present: anicteric sclerae, EOMI ENT: Present: hearing grossly normal - Respiratory Respiratory: bilateral: CTA (weak inspiratory effort) - Cardiovascular Heart sounds: normal: S1, S2 Abnormal Heart Sounds: Absent: systolic murmur, diastolic murmur, rub, S3 Gallop, S4 Gallop, click, other - Peripheral edema leg Peripheral Edema: bilateral: 1+ - Gastrointestinal General gastrointestinal: Present: decreased bowel sounds, distended, soft - Integumentary Integumentary: Present: pale - Neurologic Neurologic: Present: CNII-XII intact - Musculoskeletal Musculoskeletal: Present: generalized weakness - Psychiatric Psychiatric: Present: A&O x's 3, appropriate affect, intact judgment & insight - Labs CBC & Chem 7: 12/03/19 06:07 12/03/19 06:07 Labs: Abnormal Lab Results - Last 24 Hours (Table) 01/28/20 01/28/20 Range/Units 06:07 06:07 RBC 2.90 L (3.80-5.40) m/uL Hgb 11.3 L (11.4-16.0) gm/dL MCV 122.1 H (80.0-100.0) fL MCH 39.0 H (25.0-35.0) pg RDW 16.1 H (11.5-15.5) % Macrocytosis Marked A Sodium 136 L (137-145) mmol/L Potassium 3.1 L (3.5-5.1) mmol/L BUN 3 L (7-17) mg/dL Calcium 7.9 L (8.4-10.2) mg/dL - Imaging and Cardiology operative report reviewed Assessment and Plan (1) Abdominal pain Narrative/Plan: Dr. Doe and Dr. Burris discussed case. Unfortunately pt has extensive disease in the abd and around the bowel. The only option is to treat with chemo or to treat symptoms only. This was touched upon with the pt. She would like Dr. Gurrola's opinion and her to be present for discussion. We plan on meeting tomorrow around 1030-11. Current Visit: Yes Status: Acute Priority: High Code(s): R10.9 - UNSPECIF IED ABDOMINAL PAIN SNOMED Code(s): 91035898 (2) Primary ovarian adenocarcinoma Narrative/Plan: CA 125 on 09/04 was 1129 U/ml, now it is 3300 U/ml. Patient has been off her lynparza for almost 14 days. She had not been tolerating it for about the last 3-4 weeks (actually she was likely experiencing progressive disease as the reason for her progressive symptoms). Unfortunately, disease was too extensive for Surgery to be able to provide pt with any significant relief of her symptoms. Dietitian has been consulted to help pt with low residual diet, liquid food supplements to keep pt stool passable until treatment plan is determined. (see above) Current Visit: Yes Status: Chronic Priority: High Code(s): C56.9 - MALIGNANT NEOPLASM OF UNSPECIFIED OVARY SNOMED Code(s): 35643579
--- NOTE | 2019-12-03 20:16 | PN ---
PROGRESS NOTE DATE OF SERVICE: 12/03/2009 This 79-year-old woman who was admitted with acute bowel obstruction had exploratory laparotomy yesterday by Dr. Burris. The patient, during the exploratory laparotomy, extensive spread of extensive carcinomatosis with ovarian metastatic disease was noted with visualized peritoneal cavity with carcinomatosis with frozen abdomen was suspected and lysis of adhesions was done after exploratory laparotomy by Dr. Burris and the patient being closely monitored at this time. The patient is also being evaluated by surgery and as well as Hematology Oncology also. PAST MEDICAL HISTORY: Reviewed. REVIEW OF SYSTEMS: Cardiovascular: No angina or palpitations. Respiratory: As mentioned earlier. GASTROINTESTINAL: As mentioned earlier. no dysuria. CENTRAL NERVOUS SYSTEM: As mentioned earlier. CURRENT MEDICATIONS: Reviewed and include: 1. Tylenol p.r.n. 2. [place] 5 mg q.4 p.r.n. 4. TUMS. 5. Lovenox. 6. Neurontin. 7. Apresoline 10 mg IV q.4h p.r.n. 8. Dilaudid 0.5 mg q.3 p.r.n. 9. Cozaar. 10.Morphine sulfate. 11.Narcan. 12.Protonix. PHYSICAL EXAM: Patient is alert, oriented x3. Pulse 96, blood pressure 137/76, respirations 16, temperature 99.8, pulse ox 98% on 2 L. HEENT: Conjunctivae normal. NECK: No JVD. CARDIOVASCULAR: S1, S2 muffled. RESPIRATORY: Breath sounds diminished in the bases. A few scattered rhonchi. No crackles. ABDOMEN: Soft. Status post surgery. LEGS: No edema. No swelling. CENTRAL NERVOUS SYSTEM: No focal deficits. LABS: WBC 6.6, hemoglobin 11.3, MCV 122.1, sodium 130, potassium 3.1. ASSESSMENT: 1. Acute bowel obstruction with secondary to peritoneal carcinomatosis, status post exploratory laparotomy, lysis of adhesions and with frozen abdomen. 2. Hypertension. 3. Urinary incontinence. 4. Peripheral neuropathy and secondary to chemotherapy. 5. CA-125 elevated up to 3303. 6. Anemia, microcytic secondary to malignancy, possibly. 7. History of deep vein thrombosis, remotely. 8. History of melanoma. 9. Hyponatremia. 10.Hypokalemia. 11.FULL CODE. RECOMMENDATIONS AND DISCUSSION: In this 79-year-old woman who presented with multiple complex medical issues, we will monitor the patient closely. Continue the current medications, management and symptomatic treatment. Continue with DVT prophylaxis. Continue the proton pump inhibitors. Continue the rest of medications. Resume the home medications. Overall prognosis guarded because of multiple complex medical issues. I discussed with the family and the patient. Hematology/Oncology is also discussing several options as far as the chemotherapy is concerned. The patient will decide on the followup. Further recommendations to follow. MMODL / IJN: [id number] / BILLY
[2019-12-04] MEDS: 0.9% NACL WITH KCL 40 MEQ/L 1,000 ML IV SCH ×2 (07:40→22:22)
[2019-12-04] MEDS: LOSARTAN 50 MG TAB PO SCH (08:25)
[2019-12-04] MEDS: GABAPENTIN 300 MG CAP PO SCH ×3 (08:25→20:43)
[2019-12-04] MEDS: PANTOPRAZOLE 40 MG TABLET PO SCH ×2 (08:25→16:44)
[2019-12-04] MEDS: ENOXAPARIN 40 MG/0.4 ML SYRINGE SQ SCH (08:25)
[2019-12-04] MEDS: VERAPAMIL SR 120 MG TABLET.ER PO SCH (08:25)
[2019-12-04] MEDS: HYDROcodone/APAP 5-325MG 1 EACH TAB PO PRN (09:07)
--- NOTE | 2019-12-04 10:55 | P.PN ---
Subjective Progress Note Date: 12/04/19 CHIEF COMPLAINT: nausea HISTORY OF PRESENT ILLNESS: Patient is status post exploratory laparotomy with lysis of adhesions. 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 Patient examined this morning at the bedside. She reports discomfort at the surgical site. Tolerating clear liquid diet. Denies nausea or vomiting. Denies passing flatus. PHYSICAL EXAM: VITAL SIGNS: Reviewed. GENERAL: Well-developed in no acute distress. HEENT: No sclera icterus. Extraocular movements grossly intact. Moist buccal mucosa. Head is atraumatic, normocephalic. ABDOMEN: Soft. Incision clean dry intact. Appropriate surgical tenderness. NEUROLOGIC: Alert and oriented. Cranial nerves II through XII grossly intact. ASSESSMENT: 1. Carcinomatosis with frozen abdomen 2. History of ovarian cancer PLAN: Continue clear liquid diet. May advance to full liquids if patient continues to tolerate clear liquids as she does not like the items on the clear liquid tray. Await further recommendations from oncology Nurse practitioner note has been reviewed by physician. Signing provider agrees with the documented findings, assessment, and plan of care. Objective - Vital Signs Vital signs: Vital Signs Temp 99.7 F H 12/04/19 04:33 Pulse 91 12/04/19 04:33 Resp 18 12/04/19 04:33 BP 119/70 12/04/19 04:33 Pulse Ox 95 12/04/19 04:33 Intake & Output 12/03/19 12/04/19 12/04/19 18:59 06:59 18:59 Intake Total 100 720 Output Total 200 Balance 100 520 Weight 77 kg Intake: Intake, IV Titration 100 720 Amount 0.9% NaCl with KCl 40 Meq 720 /l 1,000 ml @ 60 mls/hr IV .[id number] [facility] Rx#: [id number] Potassium Chloride 20 meq 100 In Water For Injection 1 100ml.bag @ 50 mls/hr IVPB Q2H [facility] Rx#: [id number] Output: Urine 200 Other: Voiding Method Indwelling Catheter Indwelling Catheter - Labs CBC & Chem 7: 12/03/19 06:07 12/03/19 20:00
--- NOTE | 2019-12-04 18:30 | P.PN ---
Subjective Progress Note Date: 12/04/19 Principal diagnosis: abd pain, ileus vs obstruction. Hx ovarian adeno In follow-up today patient denies nausea or vomiting, family present for meeting Objective - Vital Signs Vital signs: Vital Signs Temp 98.1 F 12/04/19 11:30 Pulse 96 12/04/19 11:30 Resp 16 12/04/19 11:30 BP 100/59 12/04/19 11:30 Pulse Ox 91 L 12/04/19 11:35 Intake & Output 12/03/19 12/04/19 12/04/19 18:59 06:59 18:59 Intake Total 100 720 Output Total 200 Balance 100 520 Weight 77 kg Intake: Intake, IV Titration 100 720 Amount 0.9% NaCl with KCl 40 Meq 720 /l 1,000 ml @ 60 mls/hr IV .[id number] [facility] Rx#: [id number] Potassium Chloride 20 meq 100 In Water For Injection 1 100ml.bag @ 50 mls/hr IVPB Q2H [facility] Rx#: [id number] Output: Urine 200 Other: Voiding Method Indwelling Catheter Indwelling Catheter - Constitutional General appearance: Present: average body habitus, cooperative, no acute distress - EENT Eyes: Present: anicteric sclerae, EOMI ENT: Present: hearing grossly normal - Respiratory Details: respirations even and unlabored - Cardiovascular Details: skin warm and dry - Gastrointestinal General gastrointestinal: Present: distended, tenderness - Integumentary Integumentary: Present: pale - Neurologic Neurologic: Present: CNII-XII intact - Musculoskeletal Musculoskeletal: Present: generalized weakness - Psychiatric Psychiatric: Present: A&O x's 3, appropriate affect, intact judgment & insight - Labs CBC & Chem 7: 12/03/19 06:07 12/03/19 20:00 Assessment and Plan (1) Abdominal pain Narrative/Plan: Unfortunately pt has extensive disease in the abd and around the bowel. Surgery is not an option Low residual/liquid diet recommended Pain meds Keep stool very soft, monitor output Current Visit: Yes Status: Acute Priority: High Code(s): R10.9 - UNSPEC IFIED ABDOMINAL PAIN SNOMED Code(s): 83163126 (2) Primary ovarian adenocarcinoma Narrative/Plan: CA 125 on 09/04 was 1129 U/ml, now it is 3300 U/ml. Patient has been off her lynparza for almost 14 days. She had not been tolerating it for about the last 3-4 weeks (actually she was likely experiencing progressive disease as the reason for her progressive symptoms). Unfortunately, disease was too extensive for Surgery to be able to provide pt with any significant relief of her symptoms. Dietitian has been consulted to help pt with low residual diet, liquid food supplements to keep pt stool passable Case was discussed with Dr. Gurrola. Patient was offered third line treatment. Understanding that third line treatment typically has a shorter duration of response, significant benefit is low and tolerance can be poor. We discussed symptom management only, i.e. hospice care, we also discussed palliative care- very much encouraged so pt has support at home and symptoms can be managed outpatient. infrastructure project manager following up for informational sessions. Patient's family has requested a referral to [facility]'s [facility] specialty clinic for second opinion. That request has been sent. [facility] states they will contact pt with appointment date and time. Have requested a CD of recent imaging for patient to take with her. All questions answered to the best of my ability. Current Visit: Yes Status: Chronic Priority: High Code(s): C56.9 - MALIGNANT NEOPLASM OF UNSPECIFIED OVARY SNOMED Code(s): 34275467 Time with Patient: Greater than 30 (>50% time spent counseling and coordinating care)
--- NOTE | 2019-12-04 23:15 | P.PN ---
Progress Note - Text Progress Note Date: 12/04/19 - Chief Complaint Abdominal pain History of presenting complaint: This is a pleasant 79-year-old patient of Dr. Koby Ace. History of ovarian serous adenocarcinoma. Had surgery 3 years ago at [facility]. Also had 2 rounds of chemotherapy. Loss from being about a year ago. Currently being followed by Dr. Segal. Did have a computed tomography scan remarkable was told everything is fine. Patient presents with 4 days of increasing lower abdominal pain. Had nausea vomiting yesterday. No fever no chills. Normally has a bowel movement every day. But had not had a bowel movement for 4 days. She did have a moderate amount of bowel movement today though. Appetite has not been good. Computed tomography scan of the ER was suggestive of ileus bowel obstruction could not be ruled out. Being managed conservatively right now. Repeat computed tomography scan on November 27 showed partial transverse colon obstruction. On December 02 patient was taken to the operating room. Found to have a frozen abdomen. Several adhesions. Today-sitting upon a chair. Abdominal pain remains off and on. Very little oral intake. Supposed to meet with oncology team. This afternoon. Review of systems: Was done for constitutional, cardiovascular, GI, pulmonary. relevant finding as above Active Medications Acetaminophen (Tylenol Tab) 650 mg PO Q6HR PRN PRN Reason: Mild Pain or Fever >= 100.5 Hydrocodone Bitart/Acetaminophen ([place] 5-325) 1 each PO Q4HR PRN PRN Reason: Mild Pain Last Admin: 12/04/19 09:07 Dose: 1 each Documented by: Benzocaine/Menthol (Cepacol Lozenge) 1 each MUCOUS MEM Q4HR PRN PRN Reason: Sore Throat Last Admin: 12/02/19 21:07 Dose: 1 each Documented by: Calcium Carbonate/Glycine (Tums) 500 mg PO QID PRN PRN Reason: Heartburn Last Admin: 12/02/19 05:01 Dose: 500 mg Documented by: Enoxaparin Sodium (Lovenox) 40 mg SQ DAILY [facility] Last Admin: 12/04/19 08:25 Dose: 40 mg Documented by: Gabapentin (Neurontin) 300 mg PO TID [facility] Last Admin: 12/04/19 20:43 Dose: Not Given Documented by: Hydralazine HCl (Apresoline) 10 mg IVP Q4HR PRN PRN Reason: Blood Pressure - High Hydromorphone HCl (Dilaudid) 0.5 mg IVP Q3HR PRN PRN Reason: Moderate to Severe Pain Potassium Chloride/Sodium Chloride (Ns-Kcl 40 Meq/L Iv Solution) 1,000 mls @ 60 mls/hr IV .[id number] [facility] Last Admin: 12/04/19 22:22 Dose: Not Given Documented by: Losartan Potassium (Cozaar) 50 mg PO DAILY [facility] Last Admin: 12/04/19 08:25 Dose: 50 mg Documented by: Miscellaneous Information (Potassium Per Protocol) 1 each MISCELLANE DAILY PRN; Protocol PRN Reason: Per Protocol Morphine Sulfate (Morphine Sulfate (Inj)) 2 mg IV Q4HR PRN PRN Reason: Severe Pain Last Admin: 12/02/19 18:08 Dose: 2 mg Documented by: Naloxone HCl (Narcan) 0.2 mg IV Q2M PRN PRN Reason: Opioid Reversal Ondansetron HCl (Zofran) 4 mg IVP Q8HR PRN PRN Reason: Nausea And Vomiting Last Admin: 12/02/19 20:03 Dose: 4 mg Documented by: Pantoprazole Sodium (Protonix) 40 mg PO AC-BID [facility] Last Admin: 12/04/19 16:44 Dose: 40 mg Documented by: Verapamil HCl (Isoptin Sr) 120 mg PO DAILY [facility] Last Admin: 12/04/19 08:25 Dose: 120 mg Documented by: Physical examination: VITAL SIGNS: 98.1, 96, 16, 100/59, 85% on room air GENERAL: Sitting up in a chair, uncomfortable EYES: Pupils equal. Conjunctiva normal. HEENT: External appearance of nose and ears normal, oral cavity grossly normal. NECK: JVD not raised; masses not palpable. HEART: First and second heart sounds are normal; no edema. LUNGS: Respiratory rate normal; clear auscultation. ABDOMEN: Soft, tender,, no guarding or rigidity, bowel sounds are present, liver spleen not palpable, no masses palpable. PSYCH: Alert and oriented x3; mood and affect a bit low. INVESTIGATIONS, reviewed in the clinical context: White count 6.3 hemoglobin 11.3 potassium 4.1 Previous testing White count 8.2 hemoglobin 13.5 platelets 3514.5 bun 19 creatine 0.7 to Computed tomography scan of the abdomen and pelvis with contrast-moderate left pleural effusion, left lower lobe consolidation and atelectasis dilated fluid filled loops of small bowel, distended fluid-filled right: Computed tomography scan of the abdomen/November 27-possible transverse colon, partial obstruction Assessment: -Intra-abdominal and peritoneal spread of malignancy with the medial frozen abdomen.. 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 Being followed by Dr. Segal. Concern is for return of intra-abdominal malignancy. 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 She'll be discussing her options.. Other medication treatment plan to continue. Advanced care planning: Care was discussed at length with the patient. Clinical condition. She understands Robinul cure for this but there may be some palliation with the treatment that we be offered. Pros and cons were discussed and a broader sense. Patient this point is agreeable to go ahead with the hospice informational week. She also expresses the wish to look into the the hospice [facility]. She may be leaning towards hospice. More formal decision to be made later today after she meets with the oncology team. Total time spent during this was about 25-30 minutes
[2019-12-04] MEDS: ONDANSETRON 4 MG/2 ML VIAL IVP PRN (23:29)
[2019-12-05] MEDS: ENOXAPARIN 40 MG/0.4 ML SYRINGE SQ SCH (07:53)
[2019-12-05] MEDS: ONDANSETRON 4 MG/2 ML VIAL IVP PRN ×2 (09:00→17:41)
[2019-12-05] MEDS: LOSARTAN 50 MG TAB PO SCH (10:28)
[2019-12-05] MEDS: GABAPENTIN 300 MG CAP PO SCH ×3 (10:28→21:13)
[2019-12-05] MEDS: VERAPAMIL SR 120 MG TABLET.ER PO SCH (10:28)
[2019-12-05] MEDS: PANTOPRAZOLE 40 MG TABLET PO SCH ×2 (10:28→17:43)
[2019-12-05] MEDS: 0.9% NACL WITH KCL 40 MEQ/L 1,000 ML IV SCH (12:36)
--- NOTE | 2019-12-05 12:49 | P.PN ---
Subjective Progress Note Date: 12/05/19 Principal diagnosis: abd pain, ileus vs obstruction. Hx ovarian adeno In follow-up today patient is experiencing nausea and vomiting, she is not tolerating clear liquid diet well, states it's to sugary for her, she is not passed any gas or had a bowel movement since surgery. She his still having random episodes of abdominal cramping. She is using pain medications when nece ssary Objective - Vital Signs Vital signs: Vital Signs Temp 99.0 F 12/05/19 12:07 Pulse 95 12/05/19 12:07 Resp 18 12/05/19 12:07 BP 159/85 12/05/19 12:07 Pulse Ox 93 L 12/05/19 12:07 Intake & Output 12/04/19 12/05/19 12/05/19 18:59 06:59 18:59 Intake Total 3120 360 Output Total 203 801 Balance 2917 -801 360 Intake: Intake, IV Titration 600 Amount 0.9% NaCl with KCl 40 Meq 600 /l 1,000 ml @ 60 mls/hr IV .[id number] [facility] Rx#: [id number] Oral 2520 360 Output: Urine 200 800 Stool 3 1 Other: Voiding Method Indwelling Catheter Indwelling Catheter # Voids 4 0 - Exam Well-developed, frail, female laying in bed, mild distress, holding emesis basin, alert and oriented 4, oral mucosa is dry, S1-S2, regular rate and rhythm, no murmur gallop or rub, bilateral breath sounds are clear to auscultation, respiratory effort is unlabored but weak, inspiratory effort is shallow, abdominal binder in place, abdomen is soft, patient guards it, 2 bowel sounds noted at 1 minute, no swelling in the lower extremities - Labs CBC & Chem 7: 12/03/19 06:07 12/03/19 20:00 Assessment and Plan (1) Abdominal pain Narrative/Plan: Unfortunately pt has extensive disease in the abd and around the bowel. Surgery is not an option Low residual/liquid diet recommended Pain meds Keep stool very soft, monitor output Current Visit: Yes Status: Acute Priority: High Code(s): R10.9 - UNSPECIFIED ABDOMINAL PAIN SNOMED Code(s): 40903578 (2) Primary ovarian adenocarcinoma Narrative/Plan: CA 125 on 09/04 was 1129 U/ml, now it is 3300 U/ml. Patient has been off her lynparza for almost 14 days. She had not been tolerating it for about the last 3-4 weeks (actually she was likely experiencing progressive disease as the reason for her progressive symptoms). Unfortunately, disease was too extensive for Surgery to be able to provide pt with any significant relief of her symptoms. Dietitian has been consulted to help pt with low residual diet, liquid food supplements to keep pt stool p assable Case was discussed with Dr. Gurrola. Patient was offered third line treatment. Understanding that third line treatment typically has a shorter duration of response, significant benefit is low and tolerance can be poor. We discussed symptom management only, i.e. hospice care, we also discussed palliative care- very much encouraged so pt has support at home and symptoms can be managed out patient. assistant general manager following Patient's family request for referral to [facility]'s [facility] [employer]SE MANAGER specialty clinic for second opinion completed. Name and phone number of a route sales person given, [facility] to call with appt. I had a long conversation with the patient today. She is certainly fearful of not being able to eat and drink, abdominal pain, she is also fearful of proceeding with treatment. Patient has had rather poor tolerance to treatment overall. Unfortunately, patient's situation does not have any easy answers. Patient was reassured that what ever she decides she will be supported. I tried to alleviate fears about pain and discomfort reinforced that services are available to her and her family. Patient certainly understands that we'll not be able to maintain her nutritional/hydration status outside of intravenous administration. I asked her to consider how difficult continuous IV maintenance can be. Parenteral nutrition also is a poor option as that is for temporary situations-i.e. one to 2 weeks of nutritional support during an acute situation that is going to improves/anticipated to recover back to a normal state. She will discuss her feelings with her family. Will follow up Current Visit: Yes Status: Chronic Priority: High Code(s): C56.9 - MALIGNANT NEOPLASM OF UNSPECIFIED OVARY SNOMED Code(s): 55804127 Time with Patient: Greater than 30
--- NOTE | 2019-12-05 15:19 | P.PN ---
Subjective Progress Note Date: 12/05/19 CHIEF COMPLAINT: nausea HISTORY OF PRESENT ILLNESS: Patient is status post exploratory laparotomy with lysis of adhesions. 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 Patient examined this morning at the bedside. Patient reports vomiting overnight. She is still nauseous this morning and having occasional dry heaves. PHYSICAL EXAM: VITAL SIGNS: Reviewed. GENERAL: Well-developed in no acute distress. HEENT: No sclera icterus. Extraocular movements grossly intact. Moist buccal mucosa. Head is atraumatic, normocephalic. ABDOMEN: Soft. Incision clean dry intact. Appropriate surgical tenderness. NEUROLOGIC: Alert and oriented. Cranial nerves II through XII grossly intact. ASSESSMENT: 1. Carcinomatosis with frozen abdomen 2. History of ovarian cancer PLAN: NPO if patient continues to be nauseous and having dry heaves. Otherwise, clear liquid diet as tolerated No further intervention from a surgical standpoint Further management per oncology Nurse practitioner note has been reviewed by physician. Signing provider agrees with the documented findings, assessment, and plan of care. Objective - Vital Signs Vital signs: Vital Signs Temp 99.0 F 12/05/19 12:07 Pulse 95 12/05/19 12:07 Resp 18 12/05/19 12:07 BP 159/85 12/05/19 12:07 Pulse Ox 93 L 12/05/19 12:07 Intake & Output 12/04/19 12/05/19 12/05/19 18:59 06:59 18:59 Intake Total 3120 360 Output Total 203 801 Balance 2917 -801 360 Weight 77 kg Intake: Intake, IV Titration 600 Amount 0.9% NaCl with KCl 40 Meq 600 /l 1,000 ml @ 60 mls/hr IV .[id number] [facility] Rx#: [id number] Oral 2520 360 Output: Urine 200 800 Stool 3 1 Other: Voiding Method Indwelling Catheter Indwelling Catheter # Voids 4 0 - Labs CBC & Chem 7: 12/03/19 06:07 12/03/19 20:00
--- NOTE | 2019-12-05 21:50 | P.PN ---
Progress Note - Text Progress Note Date: 12/05/19 - Chief Complaint Abdominal pain Interval history: This is a pleasant 79-year-old patient of Dr. Koby Ace. History of ovarian serous adenocarcinoma. Had surgery 3 years ago at [facility]. Also had 2 rounds of chemotherapy. Loss from being about a year ago. Currently being followed by Dr. Segal. Did have a computed tomography scan remarkable was told everything is fine. Patient presents with 4 days of increasing lower abdominal pain. Had nausea vomiting yesterday. No fever no chills. Normally has a bowel movement every day. But had not had a bowel movement for 4 days. She did have a moderate amount of bowel movement today though. Appetite has not been good. Computed tomography scan of the ER was suggestive of ileus bowel obstruction could not be ruled out. Being managed conservatively right now. Repeat computed tomography scan on November 27 showed partial transverse colon obstruction. On December 02 patient was taken to the operating room. Found to have a frozen abdomen. Several adhesions. Today-up in a chair. Oral intake extremities limited. Intermittent abdominal pain. No bowel movement. Patient admitted for the oncology team yesterday. Possibly getting a second opinion at [facility]. Several family members present. Review of systems: Was done for constitutional, cardiovascular, GI, pulmonary. relevant finding as above Active Medications Acetaminophen (Tylenol Tab) 650 mg PO Q6HR PRN PRN Reason: Mild Pain or Fever >= 100.5 Hydrocodone Bitart/Acetaminophen ([place] 5-325) 1 each PO Q4HR PRN PRN Reason: Mild Pain Last Admin: 12/04/19 09:07 Dose: 1 each Documented by: Benzocaine/Menthol (Cepacol Lozenge) 1 each MUCOUS MEM Q4HR PRN PRN Reason: Sore Throat Last Admin: 12/02/19 21:07 Dose: 1 each Documented by: Calcium Carbonate/Glycine (Tums) 500 mg PO QID PRN PRN Reason: Heartburn Last Admin: 12/02/19 05:01 Dose: 500 mg Documented by: Enoxaparin Sodium (Lovenox) 40 mg SQ DAILY [facility] Last Admin: 12/05/19 07:53 Dose: 40 mg Documented by: Gabapentin (Neurontin) 300 mg PO TID [facility] Last Admin: 12/05/19 21:13 Dose: Not Given Documented by: Hydralazine HCl (Apresoline) 10 mg IVP Q4HR PRN PRN Reason: Blood Pressure - High Hydromorphone HCl (Dilaudid) 0.5 mg IVP Q3HR PRN PRN Reason: Moderate to Severe Pain Potassium Chloride/Sodium Chloride (Ns-Kcl 40 Meq/L Iv Solution) 1,000 mls @ 60 mls/hr IV .[id number] [facility] Last Admin: 12/05/19 12:36 Dose: Not Given Documented by: Losartan Potassium (Cozaar) 50 mg PO DAILY [facility] Last Admin: 12/05/19 10:28 Dose: Not Given Documented by: Miscellaneous Information (Potassium Per Protocol) 1 each MISCELLANE DAILY PRN; Protocol PRN Reason: Per Protocol Morphine Sulfate (Morphine Sulfate (Inj)) 2 mg IV Q4HR PRN PRN Reason: Severe Pain Last Admin: 12/02/19 18:08 Dose: 2 mg Documented by: Naloxone HCl (Narcan) 0.2 mg IV Q2M PRN PRN Reason: Opioid Reversal Ondansetron HCl (Zofran) 4 mg IVP Q8HR PRN PRN Reason: Nausea And Vomiting Last Admin: 12/05/19 17:41 Dose: 4 mg Documented by: Pantoprazole Sodium (Protonix) 40 mg PO AC-BID [facility] Last Admin: 12/05/19 17:43 Dose: Not Given Documented by: Verapamil HCl (Isoptin Sr) 120 mg PO DAILY [facility] Last Admin: 12/05/19 10:28 Dose: Not Given Documented by: Physical examination: VITAL SIGNS: 99, 95, 18, 159/85, 93% on 3 L GENERAL: Sitting up in a chair, uncomfortable EYES: Pupils equal. Conjunctiva normal. HEENT: External appearance of nose and ears normal, oral cavity grossly normal. NECK: JVD not raised; masses not palpable. HEART: First and second heart sounds are normal; no edema. LUNGS: Respiratory rate normal; clear auscultation. ABDOMEN: Soft, tender,, no guarding or rigidity, bowel sounds are present, liver spleen not palpable, no masses palpable. PSYCH: Alert and oriented x3; mood and affect a bit low. INVESTIGATIONS, reviewed in the clinical context: White count 6.3 hemoglobin 11.3 potassium 4.1 Previous testing White count 8.2 hemoglobin 13.5 platelets 3514.5 bun 19 creatine 0.7 to Computed tomography scan of the abdomen and pelvis with contrast-moderate left pleural effusion, left lower lobe consolidation and atelectasis dilated fluid filled loops of small bowel, distended fluid-filled right: Computed tomography scan of the abdomen/November 27-possible transverse colon, partial obstruction Assessment: -Intra-abdominal and peritoneal spread of malignancy with a frozen abdomen.., Discovered on laboratory. 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 Being followed by Dr. Segal. 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 Prognosis remains guarded. To speak to the patient and family. She will follow up [facility] , for second opinion. From my standpoint nothing nothing further to be done. This also discussed yesterday with the patient. Thank you Dr. Burris
[2019-12-05 22:38] VITALS: RESP 16
[2019-12-06] MEDS: 0.9% NACL WITH KCL 40 MEQ/L 1,000 ML IV SCH ×2 (02:01→10:58)
[2019-12-06] MEDS: ONDANSETRON 4 MG/2 ML VIAL IVP PRN (02:01)
[2019-12-06 06:36] VITALS: BP 176/79; PULSE 106; TEMP 96.2
[2019-12-06] MEDS: VERAPAMIL SR 120 MG TABLET.ER PO SCH (09:09)
[2019-12-06] MEDS: PANTOPRAZOLE 40 MG TABLET PO SCH (09:09)
[2019-12-06] MEDS: LOSARTAN 50 MG TAB PO SCH (09:09)
[2019-12-06] MEDS: GABAPENTIN 300 MG CAP PO SCH (09:09)
[2019-12-06] MEDS: ENOXAPARIN 40 MG/0.4 ML SYRINGE SQ SCH (09:09)
[2019-12-06] MEDS ORDERED: LORazepam 2 MG/ML INJ IV STA (10:29)
--- NOTE | 2019-12-06 14:09 | P.PN ---
Subjective Progress Note Date: 12/06/19 Principal diagnosis: abd pain, ileus vs obstruction. Hx ovarian adeno In follow-up today patient is experiencing nausea and vomiting, she is not tolerating clear liquid diet, she had watery stool today, abd discomfort is variable. Family is present for family meeting with Dr. Gurrola Objective - Vital Signs Vital signs: Vital Signs Temp 96.2 F L 12/06/19 05:00 Pulse 106 H 12/06/19 05:00 Resp 16 12/06/19 05:00 BP 176/79 12/06/19 05:00 Pulse Ox 98 12/06/19 05:00 Intake & Output 12/05/19 12/06/19 12/06/19 18:59 06:59 18:59 Intake Total 1640 770 Output Total 1601 700 Balance 39 70 Weight 77 kg Intake: Intake, IV Titration 800 720 Amount 0.9% NaCl with KCl 40 Meq 800 720 /l 1,000 ml @ 60 mls/hr IV .[id number] [facility] Rx#: [id number] Oral 840 50 Output: Urine 1600 700 Stool 1 Other: Voiding Method Indwelling Catheter Indwelling Catheter Indwelling Catheter # Voids 0 # Bowel Movements 1 - Exam Well-developed, frail, female laying in bed, mild distress, alert and oriented 4, oral mucosa is dry, skin pale, warm and dry, respirations are even and unlabored, patient is very weak, she is unable to reposition herself indepen dently, patient guards abdomen, it is distended, tender to mild palpation - Labs CBC & Chem 7: 12/03/19 06:07 12/03/19 20:00 Assessment and Plan (1) Abdominal pain Narrative/Plan: Unfortunately pt has extensive disease in the abd and around the bowel. Surgery is not an option Low residual/liquid diet recommended Pain meds Keep stool very soft, monitor output Current Visit: Yes Status: Acute Priority: High Code(s): R10.9 - UNSPECIFIED ABDOMINAL PAIN SNOMED Code(s): 96113898 (2) Primary ovarian adenocarcinoma Narrative/Plan: Dr. Leo Godinez had a long discussion with the patient and her family. He reviewed the very serious nature of her disease, his concerns about risk versus benefit of treatment, he reviewed clinical trials and that in her current condition patient would not be a candidate for the same. All of the patient and her family's questions were answered to their satisfaction. Upon revisiting the family, they have decided on hospice. Case was discussed with Hospice Nurse. Dr. Gurrola will manage hospice care of the patient. Once a plan is in place, patient is okay to be discharged to hospice house. Order has been placed for the same. Current Visit: Yes Status: Chronic Priority: High Code(s): C56.9 - MALIGNANT NEOPLASM OF UNSPECIFIED OVARY SNOMED Code(s): 63281887 Plan: Doctor attests: I performed a history and physical examination of this patient, developed impression and plan of care, discussed with dictator. I agree with dictators note, documented as a scribe.
--- NOTE | 2019-12-06 14:15 | P.DS ---
Providers Date of admission: 11/25/19 20:09 Expected date of discharge: 12/06/19 Attending physician: Art Gurrola Consults: 11/25/19 20:08 Consult Physician Routine Consulting Provider: Arnaldo Walls Consult Reason/Comments: medical consult, pleuaral effsions Do you want consulting provider notified?: Yes 11/26/19 15:06 Consult Physician Routine Consulting Provider: Reynaldo Doe Consult Reason/Comments: History of CA ovary Do you want consulting provider notified?: Yes 12/05/19 13:02 Consult Physician Routine Consulting Provider: Lupillo Burris Consult Reason/Comments: ileus Do you want consulting provider notified?: Already Contacted Primary care physician: Koby Ace MD - Discharge Diagnosis(es) (1) Abdominal pain Current Visit: Yes Status: Acute Priority: High (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 Imaging showed that was suggestive of obstruction, surgery evaluated patient, she was taken for surgery to relieve obstruction, unfortunately patient was found to have extraordinarily extensive disease involving the pelvis, procedure was aborted. Patient was also found to have an increasing CE 125 greater than 3000, this was right around the thousand less than 60 days ago on treatment. Patient met with primary oncologist, current situation, prognosis, treatment options and recommendations were made. Patient and family have opted for hospice care. Patient is going to be tr ansferred to hospice facility on discharge. Pending coordination of care. Discharge will occur once everything is in place. Doctor attests: I performed a history and physical examination of this patient, developed impression and plan of care, discussed with dictator. I agree with dictators note, documented as a scribe. Assessment: Frail, weak female laying in bed, mild distress, moderate psychological distress due to diagnosis and prognosis. Patient is very weak, unable to reposition, skin is pale, warm and dry, respirations at rest or unl abored, no oxygen is necessary at this time, bilateral lower extremity edema, firm, distended abdomen. Health Concerns: End-of-life care-was discussed with the patient and the family, hospice nursing is also involved Procedures: Abdominal surgery was planned, procedure aborted due to severity of disease involving the bowel, patient is not a surgical candidate Patient Condition at Discharge: Poor Plan - Discharge Summary Discharge Rx Participant: No New Discharge Prescriptions: No Action Gabapentin [Neurontin] 300 mg PO BID Verapamil HCl [Verapamil ER] 120 mg PO DAILY Losartan Potassium 50 mg PO DAILY Olaparib [Lynparza] 200 mg PO BID Discharge Medication List Gabapentin [Neurontin] 300 mg PO BID 11/25/19 [History] Losartan Potassium 50 mg PO DAILY 11/25/19 [History] Olaparib [Lynparza] 200 mg PO BID 11/25/19 [History] Verapamil HCl [Verapamil ER] 120 mg PO DAILY 11/25/19 [History] Patient Instructions/Handouts: Barium Enema (ED) Discharge Disposition[facility] Pending Studies Pending Results: none
[2019-12-06] MEDS ORDERED: LORazepam 2 MG/ML INJ IV PRN (14:16)
--- NOTE | 2019-12-08 23:43 | P.PN ---
Progress Note - Text Progress Note Date: 12/06/19 - Chief Complaint Abdominal pain Interval history: This is a pleasant 79-year-old patient of Dr. Koby Ace. History of ovarian serous adenocarcinoma. Had surgery [address] [facility]. Also had 2 rounds of chemotherapy. Loss from being about a year ago. Currently being followed by Dr. Segal. Did have a computed tomography scan remarkable was told everything is fine. Patient presents with 4 days of increasing lower abdominal pain. Had nausea vomiting yesterday. No fever no chills. Normally has a bowel movement every day. But had not had a bowel movement for 4 days. She did have a moderate amount of bowel movement today though. Appetite has not been good. Computed tomography scan of the ER was suggestive of ileus bowel obstruction could not be ruled out. Being managed conservatively right now. Repeat computed tomography scan on November 27 showed partial transverse colon obstruction. On December 02 patient was taken to the operating room. Found to have a frozen abdomen. Several adhesions. Today-feeling uncomfortable. Intermittent nausea. abdominal pain. Review of systems: Was done for constitutional, cardiovascular, GI, pulmonary. relevant finding as above current medications reviewed from today's electronic records Physical examination: VITAL SIGNS:[id number]/79-98% on 2 L GENERAL: laying in bed, uncomfortable EYES: Pupils equal. Conjunctiva normal. HEENT: External appearance of nose and ears normal, oral cavity grossly normal. NECK: JVD not raised; masses not palpable. HEART: First and second heart sounds are normal; no edema. LUNGS: Respiratory rate normal; clear auscultation. ABDOMEN: Soft, tender,, no guarding or rigidity, bowel sounds are present, liver spleen not palpable, no masses palpable. PSYCH: Alert and oriented x3; mood and affect a bit low. 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 Prognosis is not good.did again suggest hospice. Thank you Dr. Burris
== END 2019-12-06 17:30 | disposition hospice, inpatient (51) | DRG 357 ==
LOC: EC 14:51 → 5NMEDONC 20:09
PROVIDERS: ADMIT Internal Medicine Hematology & Oncology; ATTEND Internal Medicine Hematology & Oncology
PROC: 0WJG0ZZ Inspection of Peritoneal Cavity, Open Approach (ICD-10-PCS; principal; 2019-12-02 11:35)
DX: C78.6 Secondary malignant neoplasm of retroperitoneum and peritoneum (principal); C56.9 Malignant neoplasm of unspecified ovary; E87.1 Hypo-osmolality and hyponatremia; J90 Pleural effusion, not elsewhere classified; R18.8 Other ascites; J98.11 Atelectasis; K56.51 Intestinal adhesions [bands], with partial obstruction; G62.0 Drug-induced polyneuropathy; R54 Age-related physical debility; D50.9 Iron deficiency anemia, unspecified; E87.6 Hypokalemia; I10 Essential (primary) hypertension; K21.9 Gastro-esophageal reflux disease without esophagitis; R32 Unspecified urinary incontinence; T45.1X5A Adverse effect of antineoplastic and immunosuppressive drugs, initial encounter; D63.0 Anemia in neoplastic disease; E66.9 Obesity, unspecified; Z68.26 Body mass index [BMI] 26.0-26.9, adult; Z51.5 Encounter for palliative care; Z53.9 Procedure and treatment not carried out, unspecified reason; Z66 Do not resuscitate; Z79.899 Other long term (current) drug therapy; Z88.0 Allergy status to penicillin; Z88.2 Allergy status to sulfonamides; Z90.81 Acquired absence of spleen; Z90.710 Acquired absence of both cervix and uterus; Z86.718 Personal history of other venous thrombosis and embolism; Z85.820 Personal history of malignant melanoma of skin; Z90.79 Acquired absence of other genital organ(s); Z90.722 Acquired absence of ovaries, bilateral; Z90.49 Acquired absence of other specified parts of digestive tract; Z80.0 Family history of malignant neoplasm of digestive organs; Z80.52 Family history of malignant neoplasm of bladder; Z80.7 Family history of other malignant neoplasms of lymphoid, hematopoietic and related tissues
CPT/HCPCS: 36415; 74176; 74177; 74270; 80048; 80053; 81001; 82150; 83605; 83690; 84132; 85025; 86304; 86850; 86900; 86901; 96361; 96374; 96375; 99285